=== PATIENT | female | born 1940 | race Caucasian/White ===

== ENCOUNTER 2018-01-02 01:20 | Inpatient (IN) | payer MEDICARE, BC ==
[2018-01-02] VITALS (33 sets, daily range): BP systolic 70–143; BP diastolic 46–101
[~2018-01-02] VITALS: Ht 154.9 cm; Wt 89.4 kg
[~2018-01-02 01:20] MED LIST: ALEN35TA30 PO; ASC500 PO; CALC-864 PO; CETI10CA8 PO; CHOL400T22 PO; CYC10 PO; DIA5 PO; FLUT16SP19 NS; HCTZ25 PO; HYDR2TAB42 PO; IPRA15SP7 NS; LOVA10TA63 PO; OMEG-59 PO; PER PO; PRE20 PO; RAN150 PO; VITA-200 PO; [UNRECOGNIZED DRUG - CODE] PO
[2018-01-02] MEDS ORDERED: NS(*) 0.9% 1000 ML BAG 1,000 ML IV ONE ×3 (01:21→06:50)
[2018-01-02] MEDS ORDERED: ALBUTEROL/IPRATROPIUM 3 ML NEB NEB ONE ×2 (01:25→04:55)
--- NOTE | 2018-01-02 01:27 | ER Report ---
History and Physical Time Seen By MD: 01:22 HPI/ROS CHIEF COMPLAINT: Altered mental status, found down, left facial droop, fever 105 axillary by EMS HISTORY OF PRESENT ILLNESS: 77-year-old female brought from [facility] after she was found down. Patient's son noted her walking 2 hours prior to calling EMS. He subsequently found her down with vomiting fluids coming from her nose and mouth. Patient's son notes. Patient's been sick with an ear infection. She was seen by Tara Haque 10 days ago and started on antibiotic. EMS in route administered Versed for agitation and shaking. Rectal temperature on arrival here is documented at 104.8. Patient's son also notes she's been having a cough. He denies dysuria. 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 Patient's son states that she is DO NOT RESUSCITATE, DO NOT INTUBATE. She watched her sister become intubated and then suffer on a ventilator for 2 weeks and then . He expresses that she does not want to go through that. REVIEW OF SYSTEMS: Unable to obtain due to altered mental status. Allergies: Coded Allergies: Penicillins (Verified Allergy, Unknown, 01/02/18) aspirin (Verified Allergy, Unknown, 01/02/18) Home Meds Reported Medications Cyclobenzaprine Hcl (CYCLOBENZAPRINE HCL) 10 Mg Tablet, 10 MG PO BID, #9 TAB 01/02/18 Meloxicam (MELOXICAM) 15 Mg Tablet, 15 MG PO QDAY 01/02/18 Mometasone Furoate (NASONEX) 17 Gm Grawn, 17 GM ROMERO DAILY, SPRAY 01/02/18 Mometasone Furoate (MOMETASONE FUROATE) 30 Ml Solution, 30 ML TP 01/02/18 Azelastine Hcl (AZELASTINE HCL) 137 Mcg/0.137 Ml Grawn.pump, 137 MCG NS DAILY, SPRAY 01/02/18 Fluticasone Prop 50 Mcg Ns (FLONASE 50 MCG NS) 16 Gm Grawn.susp, 1 SPRAY NS BID 10/31/14 Ipratropium Thaxton 0.06% Ns (IPRATROPIUM BROMIDE 0.06% NS) 15 Ml Grawn, 15 ML NS DAILY, SPRAY 10/31/14 Cetirizine Hcl (ZYRTEC) 10 Mg Capsule, 10 MG PO QDAY, CAPSULE TAKE 1 CAPSULE DAILY. 10/31/14 Ranitidine Hcl (Zantac) 150 Mg Tab, 150 MG PO QDAY 05/20/12 Lovastatin (Lovastatin) 10 Mg Tablet, 10 MG PO QHS 05/20/12 Hydrochlorothiazide (Hydrochlorothiazide) 25 Mg Tab, 25 MG PO QDAY 05/20/12 Discontinued Reported Medications Lovastatin (LOVASTATIN) 10 Mg Tablet, 10 MG PO QHS 01/02/18 Vitamin E Acetate (VITAMIN E) 400 Unit Capsule, 400 UNIT PO DAILY, CAPSULE 10/31/14 Cholecalciferol (Vitamin D3) (VITAMIN D) 400 Unit Tab.chew, 400 UNIT PO QDAY 05/20/12 Docosahexanoic Acid/Epa (Fish Oil 300 Mg Softgel) 1 Cap Capsule, 1 CAP PO BID 05/20/12 Calcium Carb & Cit/Vitamin D3 (CITRACAL + D ER TABLET) 1 Each Tablet.er, 1 EACH PO QDAY 05/20/12 Ascorbic Acid (Vitamin C) 500 Mg Tab, 1000 MG PO QDAY 05/20/12 Romanian Ginseng Root Extract (GINSENG EXTRACT) 50 Mg Capsule, 50 MG PO QDAY 05/20/12 Past Medical/Surgical History Degenerative disc disease, allergic rhinitis, GERD, hypertension, hyperlipidemia Reviewed Nurses Notes: Yes Old Medical Records Reviewed: Yes Hx Smoking: No Smoking Status: Never Smoker Exposure to Second Hand Smoke?: No Hx Substance Use Disorder: No Hx Alcohol Use: No Constitutional Vital Sign - Last 24 Hours 01/02/18 01/02/18 01/02/18 01/02/18 01:20 01:22 01:30 01:45 Temp 104.8 Pulse 150 130 130 Resp 51 49 49 B/P (MAP) 171/111 (131) 176/107 (130) Pulse Ox 63 97 96 O2 Delivery Room Air O2 Flow Rate 10.0 01/02/18 01/02/18 01/02/18 01/02/18 02:00 02:05 02:05 02:15 Temp 102.9 102.9 Pulse 127 Resp 48 B/P (MAP) 166/103 (124) 160/104 (122) Pulse Ox 96 01/02/18 01/02/18 01/02/18 01/02/18 02:30 02:30 02:30 02:35 Pulse 132 122 132 Resp 44 20 30 B/P (MAP) 163/102 (122) Pulse Ox 94 96 O2 Delivery Non-Rebreather O2 Flow Rate 12.0 18 18 2/18 01/02/18 02:45 03:03 03:06 03:15 Pulse 129 134 Resp 47 47 B/P (MAP) 146/97 (113) 146/97 (113) 150/99 (116) Pulse Ox 94 88 88 O2 Delivery Oxy Mask O2 Flow Rate 10 18 /18 /18 01/02/18 03:15 03:30 03:45 03:55 Pulse 132 130 Resp 49 44 B/P (MAP) 132/105 (114) 140/92 (108) Pulse Ox 85 81 O2 Flow Rate 15.0 6.0 01/02/1818 2/18 01/02/18 04:00 04:15 04:30 04:45 Temp 102.9 103.0 Pulse 140 129 132 Resp 27 39 41 B/P (MAP) 127/107 (114) 132/80 (97) 133/73 (93) 114/80 (91) Pulse Ox 78 80 83 01/02/18 01/02/18 2/18 01/02/18 05:00 05:00 05:05 05:10 Pulse 129 129 126 128 Resp 45 45 43 44 B/P (MAP) 101/71 (81) 101/71 (81) Pulse Ox 85 85 85 85 01/02/18 01/02/18 05:15 05:15 Pulse 127 127 Resp 46 46 B/P (MAP) 109/57 (74) 109/57 (74) Pulse Ox 86 86 Physical Exam Vital signs stable, blood pressure grossly elevated, tachycardic 130s, fever 104.8 rectally, pulse ox normal on simple mask General Appearance: The patient is alert, has no immediate need for airway protection and no signs of toxicity. Somnolent, increased respiratory rate Eyes: Pupils equal and round no pallor or injection. ENT, Mouth: Mucous membranes are moist. TMs are normal, without erythema or bulging to suggest otitis media Respiratory: There are no retractions, lungs are clear to auscultation. Cardiovascular: Regular rate and rhythm. Gastrointestinal: Abdomen is soft and non tender, no masses, bowel sounds normal. Neurological: Unresponsive, responds to painful stimuli, movement of extremities 4, patient's altered secondary to Versed administered by EMS in route. Difficult to assess accurately. Skin: Warm and dry, no rashes. Musculoskeletal: Neck is supple non tender. Extremities are nontender, nonswollen and have full range of motion. DIFFERENTIAL DIAGNOSIS: After history and physical exam differential diagnosis was considered for altered mental status including but not limited to hypoglycemia, infectious process, electrolyte abnormality, head injury and intoxicants. Additionally,adult fever including but not limited to viral syndromes including influenza, urinary tract infection, pneumonia and sepsis. Medical Decision Making Data Points Result Diagram: 01/02/18 0132 01/02/18 2103 Laboratory Hematology Test 01/02/18 00:00 01/02/18 01:28 01/02/18 01:32 01/02/18 02:05 CSF Appearance Cloudy (CLEAR) CSF Color Yellow (COLORLESS) CSF WBC 39981 /mm3 (0-5) CSF RBC 2277 /mm3 CSF Neutrophils 94 % CSF Lymphocytes 5 % CSF Monocytes 1 % CSF Eosinophils % 0 % CSF Basophils 0 % CSF Glucose < 20 mg/dl CSF Total Protein 2103 mg/dl (15-50) Haemophilus influenzae B Antigen Negative (NEGATIVE) Neisseria meningitidis A/Y Antigen Negative (NEGATIVE) Neisseria meningitidis C/W135 Ag Negative (NEGATIVE) N. meningitidis B/E.coli K1 Ag Negative (NEGATIVE) Group B Streptococcus Antigen Negative (NEGATIVE) Streptococcus pneumoniae Antigen Negative (NEGATIVE) Influenza Virus Type A (PCR) Negative (NEGATIVE) Influenza Virus Type B (PCR) Negative (NEGATIVE) Red Blood Count 4.99 M/uL (4.17-5.56) Mean Corpuscular Volume 79.8 fL (80.0-96.0) Mean Corpuscular Hemoglobin 26.4 pg (26.0-33.0) Mean Corpuscular Hemoglobin Concent 33.1 g/dL (32.0-36.0) Red Cell Distribution Width 16.2 % (11.5-14.5) Mean Platelet Volume 7.4 fL (7.2-11.1) Neutrophils (%) (Auto) 93.5 % (39.4-72.5) Lymphocytes (%) (Auto) 1.6 % (17.6-49.6) Monocytes (%) (Auto) 4.8 % (4.1-12.4) Eosinophils (%) (Auto) 0.0 % (0.4-6.7) Basophils (%) (Auto) 0.1 % (0.3-1.4) Nucleated RBC Relative Count (auto) 0.1 /100WBC Neutrophils # (Auto) 37.0 K/uL (2.0-7.4) Lymphocytes # (Auto) 0.6 K/uL (1.3-3.6) Monocytes # (Auto) 1.9 K/uL (0.3-1.0) Eosinophils # (Auto) 0.0 K/uL (0.0-0.5) Basophils # (Auto) 0.0 K/uL (0.0-0.1) Nucleated RBC Absolute Count (auto) 0.03 K/uL Peripheral Blood Smear Yes Y/N Ammonia < 9 UMOL/L (9-33) Thyroid Stimulating Hormone (TSH) 1.97 uIU/ml (0.46-4.68) Serum Alcohol < 10 mg/dl Blood Gas Puncture Site Left radial Blood Gas Patient Temperature 104.8 DEGREES Arterial Blood pH 7.40 (7.35-7.45) Arterial Blood Partial Pressure CO2 43 mmHg (32-37) Arterial Blood Partial Pressure O2 120 mmHg (60-80) Arterial Blood HCO3 26 mmol/L (20-26) Arterial Blood Oxygen Saturation 98 % (92-100) Arterial Blood Base Excess 2.0 mmol/L Vito Test Acceptable Carboxyhemoglobin 0.0 % (< 5.0) Oxygen Liters/Minute Unknown Test 01/02/18 02:09 Urine Color Yellow Urine Clarity Clear Urine pH 6.0 pH (4.8-9.5) Urine Specific [place] 1.014 Urine Protein 100 mg/dL (NEGATIVE) Urine Glucose (UA) 50 mg/dL (NEGATIVE) Urine Ketones 20 mg/dL (NEGATIVE) Urine Blood Negative (NEGATIVE) Urine Nitrite Negative (NEGATIVE) Urine Bilirubin Negative (NEGATIVE) Urine Urobilinogen Negative mg/dL (0.2-1.9) Urine Leukocyte Esterase Negative (NEGATIVE) Urine RBC 6 /HPF (0-2/HPF) Urine WBC 2 /HPF (0-5/HPF) Urine Squamous Epithelial Cells None /LPF (NONE-FEW) Urine Bacteria Negative /HPF (NONE-FEW) Urine Hyaline Casts Many /LPF (NONE-FEW) Urine Mucus None /HPF (NONE-FEW) Urine Opiates Screen Negative Urine Barbiturates Screen Negative Ur Tricyclic Antidepressants Screen Positive Urine Phencyclidine Screen Negative Urine Amphetamines Screen Negative Urine Benzodiazepines Screen Positive Urine Cocaine Screen Negative Urine Cannabinoids Screen Negative Chemistry Test 01/02/18 00:00 01/02/18 01:28 01/02/18 01:32 01/02/18 02:05 CSF Appearance Cloudy (CLEAR) CSF Color Yellow (COLORLESS) CSF WBC 59533 /mm3 (0-5) CSF RBC 2277 /mm3 CSF Neutrophils 94 % CSF Lymphocytes 5 % CSF Monocytes 1 % CSF Eosinophils % 0 % CSF Basophils 0 % CSF Glucose < 20 mg/dl CSF Total Protein 2103 mg/dl (15-50) Haemophilus influenzae B Antigen Negative (NEGATIVE) Neisseria meningitidis A/Y Antigen Negative (NEGATIVE) Neisseria meningitidis C/W135 Ag Negative (NEGATIVE) N. meningitidis B/E.coli K1 Ag Negative (NEGATIVE) Group B Streptococcus Antigen Negative (NEGATIVE) Streptococcus pneumoniae Antigen Negative (NEGATIVE) Influenza Virus Type A (PCR) Negative (NEGATIVE) Influenza Virus Type B (PCR) Negative (NEGATIVE) White Blood Count 39.6 k/uL (4.5-11.0) Red Blood Count 4.99 M/uL (4.17-5.56) Hemoglobin 13.2 g/dL (12.0-16.0) Hematocrit 39.8 % (34.0-47.0) Mean Corpuscular Volume 79.8 fL (80.0-96.0) Mean Corpuscular Hemoglobin 26.4 pg (26.0-33.0) Mean Corpuscular Hemoglobin Concent 33.1 g/dL (32.0-36.0) Red Cell Distribution Width 16.2 % (11.5-14.5) Platelet Count 183 K/uL (150-450) Mean Platelet Volume 7.4 fL (7.2-11.1) Neutrophils (%) (Auto) 93.5 % (39.4-72.5) Lymphocytes (%) (Auto) 1.6 % (17.6-49.6) Monocytes (%) (Auto) 4.8 % (4.1-12.4) Eosinophils (%) (Auto) 0.0 % (0.4-6.7) Basophils (%) (Auto) 0.1 % (0.3-1.4) Nucleated RBC Relative Count (auto) 0.1 /100WBC Neutrophils # (Auto) 37.0 K/uL (2.0-7.4) Lymphocytes # (Auto) 0.6 K/uL (1.3-3.6) Monocytes # (Auto) 1.9 K/uL (0.3-1.0) Eosinophils # (Auto) 0.0 K/uL (0.0-0.5) Basophils # (Auto) 0.0 K/uL (0.0-0.1) Nucleated RBC Absolute Count (auto) 0.03 K/uL Peripheral Blood Smear Yes Y/N Ammonia < 9 UMOL/L (9-33) Thyroid Stimulating Hormone (TSH) 1.97 uIU/ml (0.46-4.68) Serum Alcohol < 10 mg/dl Blood Gas Puncture Site Left radial Blood Gas Patient Temperature 104.8 DEGREES Arterial Blood pH 7.40 (7.35-7.45) Arterial Blood Partial Pressure CO2 43 mmHg (32-37) Arterial Blood Partial Pressure O2 120 mmHg (60-80) Arterial Blood HCO3 26 mmol/L (20-26) Arterial Blood Oxygen Saturation 98 % (92-100) Arterial Blood Base Excess 2.0 mmol/L Vito Test Acceptable Carboxyhemoglobin 0.0 % (< 5.0) Oxygen Liters/Minute Unknown Test 01/02/18 02:09 Urine Color Yellow Urine Clarity Clear Urine pH 6.0 pH (4.8-9.5) Urine Specific [place] 1.014 Urine Protein 100 mg/dL (NEGATIVE) Urine Glucose (UA) 50 mg/dL (NEGATIVE) Urine Ketones 20 mg/dL (NEGATIVE) Urine Blood Negative (NEGATIVE) Urine Nitrite Negative (NEGATIVE) Urine Bilirubin Negative (NEGATIVE) Urine Urobilinogen Negative mg/dL (0.2-1.9) Urine Leukocyte Esterase Negative (NEGATIVE) Urine RBC 6 /HPF (0-2/HPF) Urine WBC 2 /HPF (0-5/HPF) Urine Squamous Epithelial Cells None /LPF (NONE-FEW) Urine Bacteria Negative /HPF (NONE-FEW) Urine Hyaline Casts Many /LPF (NONE-FEW) Urine Mucus None /HPF (NONE-FEW) Urine Opiates Screen Negative Urine Barbiturates Screen Negative Ur Tricyclic Antidepressants Screen Positive Urine Phencyclidine Screen Negative Urine Amphetamines Screen Negative Urine Benzodiazepines Screen Positive Urine Cocaine Screen Negative Urine Cannabinoids Screen Negative Toxicology Test 01/02/18 01:32 01/02/18 02:09 Serum Alcohol < 10 mg/dl Urine Opiates Screen Negative Urine Barbiturates Screen Negative Ur Tricyclic Antidepressants Screen Positive Urine Phencyclidine Screen Negative Urine Amphetamines Screen Negative Urine Benzodiazepines Screen Positive Urine Cocaine Screen Negative Urine Cannabinoids Screen Negative Urinalysis Test 01/02/18 02:09 Urine Color Yellow Urine Clarity Clear Urine pH 6.0 pH (4.8-9.5) Urine Specific [place] 1.014 Urine Protein 100 mg/dL (NEGATIVE) Urine Glucose (UA) 50 mg/dL (NEGATIVE) Urine Ketones 20 mg/dL (NEGATIVE) Urine Blood Negative (NEGATIVE) Urine Nitrite Negative (NEGATIVE) Urine Bilirubin Negative (NEGATIVE) Urine Urobilinogen Negative mg/dL (0.2-1.9) Urine Leukocyte Esterase Negative (NEGATIVE) Urine RBC 6 /HPF (0-2/HPF) Urine WBC 2 /HPF (0-5/HPF) Urine Squamous Epithelial Cells None /LPF (NONE-FEW) Urine Bacteria Negative /HPF (NONE-FEW) Urine Hyaline Casts Many /LPF (NONE-FEW) Urine Mucus None /HPF (NONE-FEW) Microbiology Microbiology Date/Time Source Procedure Growth Status 01/02/18 02:05 Blood Peripheral Draw Blood Culture - Final Resulted 01/02/18 02:05 Blood Peripheral Draw Blood Culture - Preliminary Resulted 01/02/18 01:32 Blood Peripheral Draw Blood Culture - Final Resulted 01/02/18 01:32 Blood Peripheral Draw Blood Culture - Preliminary NO GROWTH SO FAR, SET LATE. REINCUBATED Resulted EKG/Imaging EKG Interpretation 12 lead EK Rhythm: Sinus tachycardia, rate 130 bpm [place]: normal QRS:, Old anterior Q waves ST segments: normal, no evidence of acute ischemia or dysrhythmia 12 lead EK Rhythm: Sinus tachycardia, rate 117 [place]: normal QRS: normal ST segments: Nonspecific diffuse ST and T-wave changes Imaging X-ray: Single view portable chest x-ray was obtained. I viewed the images myself on the PACS system. My interpretation of the images is: Cardiomegaly, question left lower lobe infiltrate, normal mediastinum, no old x-rays for comparison. The radiologist interpretation had no clinically significant variation from this interpretation. Results: CT scan of the head was obtained. The results of the study are HEAD CT: Indication: Altered mental status. Technique: Contiguous axial sections were obtained from the base to the vertex without contrast enhancement. One of the following dose optimization techniques was utilized in the performance of this exam: Automated exposure control; adjustment of the mA and/ or kV according to the patient's size; or use of an iterative reconstruction technique. Specific details can be referenced in the facility's radiology CT exam operational policy. Comparison: None. Findings: There is no evidence of intra-axial or extra-axial hemorrhage. No focal areas of decreased or increased attenuation are identified. There is no evidence of mass, edema, or shift of the midline structures. The size, shape, and configuration of the ventricular system are normal. The skeletal structures are intact and unremarkable. There is mucosal thickening in the sinuses, compatible with acute sinusitis. Impression: No evidence of hemorrhage, mass, or edema. Sinusitis. The study was read by the radiologist. I viewed the images myself on the PACS system. ED Course/Re-evaluation Clinical Indication for ER IV: Hydration, IV Access ED Course Patient was admitted to an examination room. H&P was done. The differential diagnoses was considered. Patient on arrival has a rectal temperature of 104.8. She is likely septic from unknown sources. She has report of an ear infection that was treated 10 days ago with antibiotic. Patient's son states she's been sick with a cough for the last week. Tonight she collapsed and was found down and vomited. She likely aspirated copious fluid was noted coming out of her nose and mouth. EMS documented an axillary temperature of 105. She was found down after being missing for 2 hours. Transfer time was approximately 3 hours. On arrival here. Patient has grossly elevated blood pressure and is tachycardic near 150. She is aggressively fluid resuscitated. Tylenol is administered per rectum. Curry catheter is inserted. Her temperature remains 39.4. Despite aggressive fluid resuscitation cooling measures. A portable chest x-ray shows no obvious infiltrate, although as a hazy left cardiac border suggesting possible infiltrate. CT scan of the head is performed which is unremarkable except for sinusitis. Patient's white blood cell count returned at 39,000 with a left shift. Her lactate was 5. Her troponin is 0.89, suggesting a significant cardiac event She was treated with cefepime 2 g IV. I spoke with the patient's son at length explaining that she is very ill and likely to from the infection alone, not to mention that she is suffering an acute cardiac event. Patient's saturations on arrival were in the low 90s on high percent nonrebreather. She rapidly deteriorated with saturations dropping into the low 80s and copious secretions from her lungs. She is likely developing ARDS. I explained to her son that her survival is unlikely. But that we would admit her and aggressively support her with IV antibiotics and fluid resuscitation. 01/02/2018 2:09:02 am ABG noted 7.45, CO2 36, saturation adequate 01/02/2018 4:15:42 am Procedure: Lumbar puncture. Indication: Unresponsive, fever, sepsis After verbal informed consent from patient's son explaining the risks including infection, bleeding, and neurologic damage, a lumbar puncture was performed after the patient was prepped and draped in the usual fashion. The back was anesthetized with 1% lidocaine. Approximately, no fluid was obtained. Multiple passes were made at 2 different levels with 3 different spinal needle without success. Patient has significant adipose tissue making landmarks difficult to distinguish The procedure was performed by myself. Decision to Disposition Date: Jan 02, 2018 Decision to Disposition Time: 01:57 Critical Care Time I spent a total of 90 minutes of critical care time in obtaining history, performing a physical exam, bedside monitoring of interventions, collecting and interpreting tests and discussion with consultants but not including time spent performing procedures. Depart Departure Latest Vital Signs Vital Signs Date Time Temp Pulse Resp B/P (MAP) Pulse Ox O2 Delivery O2 Flow Rate FiO2 01/02/18 05:15 127 46 109/57 (74) 86 01/02/18 04:45 103.0 01/02/18 03:55 6.0 01/02/18 03:06 Oxy Mask Impression: Primary Impression: Fever Additional Impressions: Sepsis Altered mental status Do not resuscitate status Hypokalemia Sinusitis Elevated troponin Condition: Improved Disposition: Admitted from ER Problem Qualifiers Primary Impression: Fever Fever type: unspecified Qualified Codes: R50.9 - Fever, unspecified Additional Impressions: Sepsis Sepsis type: sepsis due to unspecified organism Qualified Codes: A41.9 - Sepsis, unspecified organism Altered mental status Altered mental status type: delirium Qualified Codes: R41.0 - Disorientation , unspecified Sinusitis Sinusitis location: unspecified location Chronicity: acute Recurrence: not specified as recurrent Qualified Codes: J01.90 - Acute sinusitis, unspecified WILBUR JOHN DO Jan 02, 2018 01:27
[2018-01-02] MEDS ORDERED: ACETAMINOPHEN 325 MG SUPP PR ONE ×2 (01:35→05:50)
[2018-01-02] MEDS ORDERED: ACETAMINOPHEN 650 MG SUPP PR ONE ×2 (01:35→05:50)
[2018-01-02 01:46] LABS: PLATELET COUNT, AUTOMATED 183 K/uL (150-450)
--- NOTE | 2018-01-02 01:52 | EKG ---
FACILITY: [facility] - [place] PATIENT NAME: THERESA REDMAN : [id number] MR: [id number] V: [id number] EXAM DATE: ORDERING PHYSICIAN: WILBUR NGUYEN TECHNOLOGIST: ADA Fajardo Reason : CARDIAC Blood Pressure : / mmHG Vent. Rate : 130 BPM Atrial Rate : 130 BPM P-R Int : 138 ms QRS Dur : 080 ms QT Int : 296 ms P-R-T Axes : 051 065 063 degrees QTc Int : 435 ms Sinus tachycardia Possible left atrial enlargement Poor R wave progression anteriorly Abnormal ECG No previous ECGs available Confirmed by PEDRO ALFONSO ([id number] on 01/02/2018 2:02:38 AM Referred By: Confirmed By:PEDRO ALFONSO
--- NOTE | 2018-01-02 02:14 | RADIOLOGY IMAGING REPORT ---
[facility] PATIENT NAME: Merlyn Israel : 1940 MR: [id number] V: [id number] EXAM DATE: ORDERING PHYSICIAN: WILBUR JOHN TECHNOLOGIST: Location: [facility] Patient: Merlyn Israel : 1940 Visit/Account:[id number] Date of Sevice: 01/02/2018 PORTABLE CHEST: Indication: Altered mental status. Technique: A single frontal film was obtained. Comparison: None. Skeletal and soft tissue structures: No acute skeletal deformity is identified. Heart and mediastinum: The heart appears mildly enlarged. Lung ibarra: Well-expanded. There are prominent interstitial markings in both lungs. No focal parench ymal consolidation or volume loss is identified. Pleural spaces: No evidence of pneumothorax or effusion. Impression: No acute process is identified. Report Dictated By: Claudio Lainez MD at 01/02/2018 2:07 AM Report E-Signed By: Claudio Lainez MD at 01/02/2018 2:10 AM WSN:[id number]
[2018-01-02] MEDS ORDERED: CEFEPIME HCL 2 GM VIAL IVP ONE (02:25)
--- NOTE | 2018-01-02 03:20 | RADIOLOGY IMAGING REPORT ---
FACILITY: [facility] [place] PATIENT NAME: Merlyn Israel : 1940 MR: [id number] V: [id number] EXAM DATE: ORDERING PHYSICIAN: WILBUR JOHN TECHNOLOGIST: Location: [facility] Patient: Merlyn Israel : 1940 Visit/Account:[id number] Date of Sevice: 01/02/[address]: Indication: Altered mental status. Technique: Contiguous axial sections were obtained from the base to the vertex without contrast enhan cement. One of the following dose optimization techniques was utilized in the performance of this exam: Autom ated exposure control; adjustment of the mA and/or kV according to the patient's size; or use of an i terative reconstruction technique. Specific details can be referenced in the facility's radiology CT exam operational policy. Comparison: None. Findings: There is no evidence of intra-axial or extra-axial hemorrhage. No focal areas of decreased or increased attenuation are identified. There is no evidence of mass, edema, or shift of the midline structures. The size, shape, and configuration of the ventricular system are normal. The skeletal st ructures are intact and unremarkable. There is mucosal thickening in the sinuses, compatible with acu te sinusitis. Impression: No evidence of hemorrhage, mass, or edema. Sinusitis. Report Dictated By: Claudio Lainez MD at 01/02/2018 3:08 AM Report E-Signed By: Claudio Lainez MD at 01/02/2018 3:16 AM [id number]
[2018-01-02] MEDS ORDERED: AZEL137S NS (03:22)
[2018-01-02] MEDS ORDERED: CYCL10TA29 PO (03:22)
[2018-01-02] MEDS ORDERED: MOME30SO TP (03:22)
[2018-01-02] MEDS ORDERED: MOMR ENA (03:22)
[2018-01-02] MEDS ORDERED: MELO-207 PO (03:22)
[2018-01-02] MEDS ORDERED: NS(*) 0.9% 100 ML BAG 100 ML ONE (04:11)
[2018-01-02] MEDS ORDERED: NS(*) 0.9% 1000 ML BAG 1,000 ML IV PRN ×3 (05:45→11:09)
[2018-01-02] MEDS ORDERED: KCL (*) 20 MEQ/100 ML PREMIX 100 ML IV ONE (06:35)
--- NOTE | 2018-01-02 06:59 | EKG ---
FACILITY: [facility] PATIENT NAME: THERESA REDMAN : [id number] MR: [id number] V: [id number] EXAM DATE: ORDERING PHYSICIAN: WILBUR JOHN TECHNOLOGIST: JUAN MANUEL Fajardo Reason : REPEAT Blood Pressure : / mmHG Vent. Rate : 117 BPM Atrial Rate : 117 BPM P-R Int : 142 ms QRS Dur : 074 ms QT Int : 352 ms P-R-T Axes : 063 028 075 degrees QTc Int : 491 ms Sinus tachycardia Nonspecific ST abnormality Abnormal ECG Relatively unchanged from previous Confirmed by MICHAEL HENRIQUEZ ([id number]) on 01/02/2018 11:14:24 AM Referred By: Confirmed By:MICHAEL HENRIQUEZ
[2018-01-02] MEDS ORDERED: LOVA10TA63 PO (08:10)
[2018-01-02] MEDS ORDERED: INFLUENZA VIRUS VAC 0.5 ML SYR IM ONLY ONE (09:15)
[2018-01-02] MEDS ORDERED: NS 0.9% 20 ML SDV 60 ML ONE (09:21)
[2018-01-02] MEDS ORDERED: IOPAMIDOL 76% 75 ML INFUS BTL 75 ML ONE (09:21)
[2018-01-02] MEDS ORDERED: cefTRIAXone 2 GM VIAL IVP SCH (09:30)
[2018-01-02] MEDS ORDERED: VANCOMYCIN IVPB ONE (10:00)
[2018-01-02] MEDS ORDERED: [UNRECOGNIZED DRUG - OTHER] IVPB ONE (10:00)
--- NOTE | 2018-01-02 10:46 | EKG ---
FACILITY: [facility] - [place] [place] PATIENT NAME: THERESA REDMAN : [id number] MR: [id number] V: [id number] EXAM DATE: ORDERING PHYSICIAN: MICHAEL HENRIQUEZ TECHNOLOGIST: JUAN MANUEL Fajardo Reason : repeat Blood Pressure : / mmHG Vent. Rate : 114 BPM Atrial Rate : 114 BPM P-R Int : 140 ms QRS Dur : 070 ms QT Int : 362 ms P-R-T Axes : 063 064 064 degrees QTc Int : 498 ms Sinus tachycardia Low voltage QRS Nonspecific ST abnormality Abnormal ECG When compared with ECG of 02-JAN-2018 06:34, No significant change was found Confirmed by MICHAEL HENRIQUEZ ([id number]) on 01/02/2018 11:14:41 AM Referred By: FLORENCE Confirmed By:MICHAEL HENRIQUEZ
--- NOTE | 2018-01-02 11:30 | History & Physical ---
History of Present Illness History of Present Illness 77yo female with hypogammaglobulinemia who was brought to the ER for AMS. The history is from her son. She had an ear infection and was placed on a 10 day course of Doxycycline that would have ended about 4 days ago. She has also had a cough for a couple of weeks. She has been doing relatively well until about 10 pm last night. Her son was unable to wake her up. She had evidence that she was vomiting. She got Versed en route from [place] because of agitaiton and shaking. She had a fever of 104.8 in the ER. She had been on IVIG infusions up for hypogammaglobulinemia up until a couple of years ago. She couldn't afford the infusions, so stopped getting them. In the ER, she had a fever to 104.8, HR 130 and BP of 176/107. She received about 4-6 liters of fluid. She was given a dose of Cefepime. History Problems: (1) Hypogammaglobulinemia Status: Chronic (2) HTN (hypertension) Status: Chronic (3) Multiple allergies Home Meds Reported Medications Cyclobenzaprine Hcl (CYCLOBENZAPRINE HCL) 10 Mg Tablet, 10 MG PO BID, #9 TAB 01/02/18 Meloxicam (MELOXICAM) 15 Mg Tablet, 15 MG PO QDAY 01/02/18 Mometasone Furoate (NASONEX) 17 Gm Mayflower, 17 GM ROMERO DAILY, SPRAY 01/02/18 Mometasone Furoate (MOMETASONE FUROATE) 30 Ml Solution, 30 ML TP 01/02/18 Azelastine Hcl (AZELASTINE HCL) 137 Mcg/0.137 Ml Mayflower.pump, 137 MCG NS DAILY, SPRAY 01/02/18 Fluticasone Prop 50 Mcg Ns (FLONASE 50 MCG NS) 16 Gm Mayflower.susp, 1 SPRAY NS BID 10/31/14 Ipratropium [place] 0.06% Ns (IPRATROPIUM BROMIDE 0.06% NS) 15 Ml Mayflower, 15 ML NS DAILY, SPRAY 10/31/14 Cetirizine Hcl (ZYRTEC) 10 Mg Capsule, 10 MG PO QDAY, CAPSULE TAKE 1 CAPSULE DAILY. 10/31/14 Ranitidine Hcl (Zantac) 150 Mg Tab, 150 MG PO QDAY 7/8/12 Lovastatin (Lovastatin) 10 Mg Tablet, 10 MG PO QHS 05/20/12 Hydrochlorothiazide (Hydrochlorothiazide) 25 Mg Tab, 25 MG PO QDAY 05/20/12 Discontinued Reported Medications Lovastatin (LOVASTATIN) 10 Mg Tablet, 10 MG PO QHS 01/02/18 Vitamin E Acetate (VITAMIN E) 400 Unit Capsule, 400 UNIT PO DAILY, CAPSULE 10/31/14 Cholecalciferol (Vitamin D3) (VITAMIN D) 400 Unit Tab.chew, 400 UNIT PO QDAY 05/20/12 Docosahexanoic Acid/Epa (Fish Oil 300 Mg Softgel) 1 Cap Capsule, 1 CAP PO BID 05/20/12 Calcium Carb & Cit/Vitamin D3 (CITRACAL + D ER TABLET) 1 Each Tablet.er, 1 EACH PO QDAY 05/20/12 Ascorbic Acid (Vitamin C) 500 Mg Tab, 1000 MG PO QDAY 05/20/12 Indonesian Ginseng Root Extract (GINSENG EXTRACT) 50 Mg Capsule, 50 MG PO QDAY 05/20/12 Allergies: Coded Allergies: Penicillins (Verified Allergy, Unknown, 01/02/18) aspirin (Verified Allergy, Unknown, 01/02/18) Other Social/Family Hx Lives in [place]. Retired. Hx Smoking: No Smoking Status: Never Smoker Exposure to Second Hand Smoke?: No Hx Alcohol Use: No Hx Substance Use Disorder: No Review of Systems Other Unable to obtain. Exam Vital Signs Vital Signs Date Time Temp Pulse Resp B/P (MAP) Pulse Ox O2 Delivery O2 Flow Rate FiO2 01/02/18 08:50 90.0 01/02/18 08:00 100.3 116 116/101 (106) 89 Non-Rebreather 21.0 01/02/18 07:30 56 General Appearance: Other (Labored breathing.) Neuro: Other (Eyes open, but doesn't follow commands or answer questions. Moving all extremities.) Cardiovascular: Other (Tachy, regular) Respiratory: Other (Coarse BS througout) GI: Other (Mildly distended. Soft. Difficult to discern if there is tenderness) Extremities: No Edema Integumentary: No Jaundice, No Cyanosis Medical Decision Making Data Points Result Diagram: 01/02/18 0132 01/02/18 0132 Item Value Date Time Potassium Level 3.4 mmol/L L 01/02/18 0000 Potassium Level 2.8 mmol/L *L 01/02/18 0132 Blood Urea Nitrogen 15 mg/dl 01/02/18 0000 Blood Urea Nitrogen 11 mg/dl 01/02/18 0132 Creatinine 0.90 mg/dl 01/02/18 013 Creatinine 1.10 mg/dl H 01/02/18 0000 Lactate 5.6 mmol/L *H 01/02/18 0000 Lactate 5.3 mmol/L *H 01/02/18 0132 Total Bilirubin 0.8 mg/dl 01/02/18 0132 Aspartate Amino Transf (AST/SGOT) 39 U/L H 01/02/18 0132 Alanine Aminotransferase (ALT/SGPT) 37 U/L 01/02/18 0132 Alkaline Phosphatase 103 U/L 01/02/18 0132 Ammonia < 9 UMOL/L L 01/02/18 013 Troponin I 0.918 ng/ml *H 01/02/18 0132 Troponin I 5.820 ng/ml *H 01/02/18 0902 White Blood Count 39.6 k/uL *H 01/02/18 0132 Hemoglobin 13.2 g/dL 01/02/18 013 Platelet Count 183 K/uL 01/02/18 0132 Neutrophils (%) (Auto) 93.5 % H 01/02/18 013 Arterial Blood pH 7.40 01/02/18 0205 Arterial Blood Partial Pressure CO2 43 mmHg H 01/02/18 0205 Arterial Blood Partial Pressure O2 120 mmHg *H 01/02/18 0205 Arterial Blood HCO3 26 mmol/L 01/02/18 020 Arterial Blood Oxygen Saturation 98 % 01/02/18 020 Arterial Blood Base Excess 2.0 mmol/L 01/02/18 020 Urine Specific Purlear 1.014 01/02/18 0209 Urine Protein 100 mg/dL 01/02/18 0209 Urine Glucose (UA) 50 mg/dL H 01/02/18 0209 Urine RBC 6 /HPF 01/02/18 0209 Urine WBC 2 /HPF 01/02/18 0209 Urine Squamous Epithelial Cells None /LPF 01/02/18 0209 Urine Bacteria Negative /HPF 01/02/18 0209 Urine Hyaline Casts Many /LPF H 01/02/18 0209 Influenza Virus Type A (PCR) Negative 01/02/188 Influenza Virus Type B (PCR) Negative 01/02/18 0128 Ur Tricyclic Antidepressants Screen Positive 01/02/18 0209 Urine Benzodiazepines Screen Positive 01/02/18 0209 Serum Alcohol < 10 mg/dl 01/02/18 0132 EKG / Imaging EKG Interpretation Vent. Rate : 130 BPM Atrial Rate : 130 BPM P-R Int : 138 ms QRS Dur : 080 ms QT Int : 296 ms P-R-T Axes : 051 065 063 degrees QTc Int : 435 ms Sinus tachycardia Possible left atrial enlargement Poor R wave progression anteriorly Abnormal ECG No previous ECGs available Confirmed by PEDRO ALFONSO ([id number]) on 01/02/2018 2:02:38 AM Imaging CXR - Vent. Rate : 130 BPM Atrial Rate : 130 BPM P-R Int : 138 ms QRS Dur : 080 ms QT Int : 296 ms P-R-T Axes : 051 065 063 degrees QTc Int : 435 ms Sinus tachycardia Possible left atrial enlargement Poor R wave progression anteriorly Abnormal ECG No previous ECGs available Confirmed by PEDRO ALFONSO ([id number]) on 01/02/2018 2:02:[address] - No evidence of hemorrhage, mass, or edema. Sinusitis. Assessment and Plan Problems: (1) Sepsis Status: Acute Assessment & Plan: She presented with acute onset of AMS and fever to 104.8. She has an elevated WBC/troponin/lactate. CXR and UA are wnl. They were unable to get an LP done in the ER. ER physician was under the impression that the patient's and son's wishes were that only antibiotics and fluids be tried and no other aggressive interactions. However, the son would like everything done except to have her intubated. She will be transferred to the ICU. Will get a CT chest/abd/pelvis. Follow lactate. Her BP is stable but still tachycardic. Will contact anesthesia about getting an LP done. Will change abx to ceftriaxone/vancomycin. She will be placed in contact isolation. (2) Elevated troponin Status: Acute Assessment & Plan: Likely related to sepsis. Her ECG is relatively normal. I will discuss with Cardiology about any changes in management. Echo to be done. (3) Altered mental status Status: Acute Assessment & Plan: Etiology unclear. See above. Head CT without any obvious cause. (4) Hypogammaglobulinemia Status: Chronic Assessment & Plan: Untreated for the last couple of years secondary to lack of insurance. We are trying to get records. Will likely infuse IVIG. (5) HTN (hypertension) Status: Chronic Assessment & Plan: Hold chronic medications. Venous Thromboembolism Antithrombotics Is Pt On Any Antithrombotics?: No Exam Sepsis Risk: Severe Sepsis Risk Problem Qualifiers (1) Sepsis: Sepsis type: sepsis due to unspecified organism Qualified Codes: A41.9 - Sepsis, unspecified organism (2) Altered mental status: Altered mental status type: delirium Qualified Codes: R41.0 - Disorientation , unspecified MICHAEL HENRIQUEZ MD Jan 02, 2018 11:30
[2018-01-02] MEDS: NS 0.9% IVPB SCH ×2 (12:30→20:58)
[2018-01-02] MEDS: ACYCLOVIR IVPB SCH ×2 (12:30→20:58)
[2018-01-02] MEDS ORDERED: LORazepam 2 MG/ML VIAL IVP ONE ×2 (13:30→19:20)
[2018-01-02] MEDS ORDERED: NS(*) 0.9% 10 ML VIAL 0 ML ONE (13:52)
[2018-01-02] MEDS ORDERED: LIDOCAINE MPF 1% 5 ML VIAL ONE (13:52)
[2018-01-02] MEDS ORDERED: ACETAMINOPHEN(*)1000 MG/100 ML 100 ML IVPB ONE (14:15)
[2018-01-02] MEDS ORDERED: diphenhydrAMINE 50 MG/ML VIAL IVP ONE (14:30)
[2018-01-02] MEDS ORDERED: methylPREDNIS SUCC 125 MG/2ML IVP ONE (14:35)
--- NOTE | 2018-01-02 14:36 | RADIOLOGY IMAGING REPORT ---
[place] [facility] [place] Merlyn Israel : 1940 MR: [id number] V: [id number] EXAM DATE: ORDERING PHYSICIAN: MICHAEL HENRIQUEZ TECHNOLOGIST: Location: [facility] Patient: Merlyn Israel : 1940 Visit/Account:[id number] Date of Sevice: 01/02/2018 ADDENDUM #1 Also in the impression of the CT the chest: Incidental note of a retroesophageal right subclavian art pat. Report Dictated By: Paulino Phipps at 01/02/2018 5:18 PM Report E-Signed By: Paulino Phipps at 01/02/2018 5:[address] angiogram chest with contrast Indication: Respiratory distress. Distended abdomen. Elevated lactate. Comparison: None available. Technique: Axial CT images are obtained through the chest after administration of 75 mL Isovue 370 IV contrast. Reformatted coronal and sagittal images were reviewed as well as coronal MIP images. One of the following dose optimization techniques was utilized in the performance of this exam: auto mated exposure control; adjustment of the mA and/or kV according to the patient's size; or use of an iterative reconstruction technique. Specific details can be referenced in the facility's radiology C T exam operational policy. FINDINGS: No evidence of filling defect within the pulmonary vasculature to suggest pulmonary embolus. The heart is upper limits normal for size. The aorta shows no aneurysm or dissection. Incidental note of a retroesophageal right subclavian artery. Mediastinum and hilar regions show no enlarged lymph n odes or abnormal density. Small bilateral pleural effusions with bilateral upper lobe consolidation with some mild extension to the inferior basilar, dependent regions.. No other areas of consolidation. No pneumothorax. No discr ete nodules. The airways are clear. Bony structures show no acute fracture or discrete lesions. The chest wall shows no enlarged axillary lymph nodes or masses. Limited views of the upper abdomen are unremarkable. IMPRESSION: 1. No evidence of pulmonary embolus. 2. Bilateral pneumonia with small pleural effusions. CT abdomen and pelvis without and with IV contrast Indication: Distended abdomen, elevated lactate. Respiratory distress. Comparison: None available. . Technique: Axial CT images were obtained through the abdomen and pelvis prior to and during injecti on of nonionic iodinated intravenous contrast. Reformatted coronal and sagittal images were also obta ined. One of the following dose optimization techniques was utilized in the performance of this exam: Autom ated exposure control; adjustment of the mA and/or kV according to the patient's size; or use of an i terative reconstruction technique. Specific details can be referenced in the facility's radiology C T exam operational policy. Contrast: 75 ml of Isovue-370 IV contrast. Findings: Lower lung ibarra: Small bowel bilateral pleural effusions with early bibasilar consolidation. Liver: No focal parenchymal abnormality of the liver. Biliary: Gallbladder appears unremarkable as well as the intra and extra hepatic biliary system. Pancreas: No focal abnormality or ductal dilatation. Around the tail of pancreas there is mild inflam matory stranding and fluid extending to the left paracolic gutter region. No fluid collections around the pancreas. Spleen: Normal appearance. Adrenal glands: Unremarkable. Kidneys / retroperitoneum: No evidence of nephrolithiasis or hydronephrosis. Bilateral renal cysts, 1 .2 centers on the right and 3.9 cm on the left. No other discrete renal lesions. Bowel / peritoneum / mesenteries: Multiple diverticula seen along the descending and sigmoid colon wi thout pericolonic inflammation. The colon shows no focal normality. The appendix is not visualized. S mall bowel shows no focal abnormality or obstruction. The stomach is unremarkable. The duodenum shows no focal abnormality. No free air, free fluid, fluid collections or areas of inflammation. Small u bilical hernia containin g fat. Lymph node assessment: No pathologic adenopathy identified.Pelvic structures: The urinary bladder is decompressed with Curry catheter in place. The remaining pelvic structures visualized within selena l limits. Vessels: Mild atherosclerotic calcifications seen throughout a nonaneurysmal abdominal aorta and bran ches. Musculoskeletal / Body wall: No acute or aggressive osseous abnormality. Mild degenerative changes sp ine. IMPRESSION: 1. There is mild distal peripancreatic inflammation and fluid extending into the paracolic gutter reg ion on the left side. No fluid collections. No focal pancreatic abnormality. This could be due to ear ly pancreatitis. 2. Diverticulosis without radiographic indication diverticulitis. 3. Small bilateral small pleural effusion with bibasilar consolidation. 4. Bilateral renal cyst. Report Dictated By: Paulino Phipps at 01/02/2018 2:10 PM Report E-Signed By: Paulino Phipps at 01/02/2018 2:31 PM WSN:[id number]
--- NOTE | 2018-01-02 14:37 | RADIOLOGY IMAGING REPORT ---
[place] [facility] [place] NAME: Merlyn Israel : 1940 MR: [id number] V: [id number] EXAM DATE: ORDERING PHYSICIAN: MICHAEL HENRIQUEZ TECHNOLOGIST: Location: [facility] - [place] Patient: Merlyn Israel : 1940 Visit/Account:[id number] Date of Sevice: 01/02/2018 ADDENDUM #1 Also in the impression of the CT the chest: Incidental note of a retroesophageal right subclavian art pat. Report Dictated By: Paulino Phipps at 01/02/2018 5:18 PM Report E-Signed By: Paulino Phipps at 01/02/2018 5:[address] angiogram chest with contrast Indication: Respiratory distress. Distended abdomen. Elevated lactate. Comparison: None available. Technique: Axial CT images are obtained through the chest after administration of 75 mL Isovue 370 IV contrast. Reformatted coronal and sagittal images were reviewed as well as coronal MIP images. One of the following dose optimization techniques was utilized in the performance of this exam: auto mated exposure control; adjustment of the mA and/or kV according to the patient's size; or use of an iterative reconstruction technique. Specific details can be referenced in the facility's radiology C T exam operational policy. FINDINGS: No evidence of filling defect within the pulmonary vasculature to suggest pulmonary embolus. The heart is upper limits normal for size. The aorta shows no aneurysm or dissection. Incidental note of a retroesophageal right subclavian artery. Mediastinum and hilar regions show no enlarged lymph n odes or abnormal density. Small bilateral pleural effusions with bilateral upper lobe consolidation with some mild extension to the inferior basilar, dependent regions.. No other areas of consolidation. No pneumothorax. No discr ete nodules. The airways are clear. Bony structures show no acute fracture or discrete lesions. The chest wall shows no enlarged axillary lymph nodes or masses. Limited views of the upper abdomen are unremarkable. IMPRESSION: 1. No evidence of pulmonary embolus. 2. Bilateral pneumonia with small pleural effusions. CT abdomen and pelvis without and with IV contrast Indication: Distended abdomen, elevated lactate. Respiratory distress. Comparison: None available. . Technique: Axial CT images were obtained through the abdomen and pelvis prior to and during injecti on of nonionic iodinated intravenous contrast. Reformatted coronal and sagittal images were also obta ined. One of the following dose optimization techniques was utilized in the performance of this exam: Autom ated exposure control; adjustment of the mA and/or kV according to the patient's size; or use of an i terative reconstruction technique. Specific details can be referenced in the facility's radiology C T exam operational policy. Contrast: 75 ml of Isovue-370 IV contrast. Findings: Lower lung ibarra: Small bowel bilateral pleural effusions with early bibasilar consolidation. Liver: No focal parenchymal abnormality of the liver. Biliary: Gallbladder appears unremarkable as well as the intra and extra hepatic biliary system. Pancreas: No focal abnormality or ductal dilatation. Around the tail of pancreas there is mild inflam matory stranding and fluid extending to the left paracolic gutter region. No fluid collections around the pancreas. Spleen: Normal appearance. Adrenal glands: Unremarkable. Kidneys / retroperitoneum: No evidence of nephrolithiasis or hydronephrosis. Bilateral renal cysts, 1 .2 centers on the right and 3.9 cm on the left. No other discrete renal lesions. Bowel / peritoneum / mesenteries: Multiple diverticula seen along the descending and sigmoid colon wi thout pericolonic inflammation. The colon shows no focal normality. The appendix is not visualized. S mall bowel shows no focal abnormality or obstruction. The stomach is unremarkable. The duodenum shows no focal abnormality. No free air, free fluid, fluid collections or areas of inflammation. Small u bilical hernia containin g fat. Lymph node assessment: No pathologic adenopathy identified.Pelvic structures: The urinary bladder is decompressed with Curry catheter in place. The remaining pelvic structures visualized within selena l limits. Vessels: Mild atherosclerotic calcifications seen throughout a nonaneurysmal abdominal aorta and bran ches. Musculoskeletal / Body wall: No acute or aggressive osseous abnormality. Mild degenerative changes sp ine. IMPRESSION: 1. There is mild distal peripancreatic inflammation and fluid extending into the paracolic gutter reg ion on the left side. No fluid collections. No focal pancreatic abnormality. This could be due to ear ly pancreatitis. 2. Diverticulosis without radiographic indication diverticulitis. 3. Small bilateral small pleural effusion with bibasilar consolidation. 4. Bilateral renal cyst. Report Dictated By: Paulino Phipps at 01/02/2018 2:10 PM Report E-Signed By: Paulino Phipps at 01/02/2018 2:31 PM WSN:[id number]
[2018-01-02] MEDS ORDERED: IMMU GLOB(IGG) 10GR/100ML VIAL 40 GR in EMPTY EVACUATED CONT 0 ML IV ONE (15:00)
--- NOTE | 2018-01-02 17:05 | RADIOLOGY IMAGING REPORT ---
FACILITY: [facility] PATIENT NAME: Merlyn Israel : 1940 MR: [id number] V: [id number] EXAM DATE: ORDERING PHYSICIAN: MICHAEL HENRIQUEZ TECHNOLOGIST: Location: [facility] [place] Patient: Merlyn Israel : 1940 Visit/Account:[id number] Date of Sevice: 01/02/2018 Exam type: PICC LINE INSERTION, PICC LINE PLACEMENT History: IV access Comparison: None. Findings: Informed consent was obtained from the patient's son. The patient's left arm was prepped and draped in usual sterile fashion. Local anesthesia was accomplished with 1% lidocaine. Utilizing both sonog raphic and fluoroscopic guidance a 39 cm long trimmed 5 Nepalese double lumen power PICC which was inse rted via the patent left basilic vein with the distal tip resting in the superior vena cava. Both scooter mens of the power PICC were flushed with 5 mL of saline flush. Proximal portion PICC line was adhere d to the patient's arm with a sterile dressing. The sonographic images were saved to PACS. The proc edure was accomplished without apparent complication. The fluoroscopy dose area product was 471.63 m icro-Noble per meter squared. IMPRESSION: 1. Successful placement of a 39 cm long trimmed 5 Nepalese double lumen power PICC inserted via the pa tent left basilic vein with the distal tip resting in superior vena cava Report Dictated By: Sara Martin MD at 01/02/2018 4:58 PM Report E-Signed By: Sara Martin MD at 01/02/2018 5:02 PM WSN:[email or web address]
--- NOTE | 2018-01-02 17:06 | RADIOLOGY IMAGING REPORT ---
[place] [facility] [place] Merlyn Israel : 1940 MR: [id number] V: [id number] EXAM DATE: ORDERING PHYSICIAN: MICHAEL HENRIQUEZ TECHNOLOGIST: Location: [facility] [place] Patient: Merlyn Israel : 1940 Visit/Account:[id number] Date of Sevice: 01/02/2018 Exam type: PICC LINE INSERTION, PICC LINE PLACEMENT History: IV access Comparison: None. Findings: Informed consent was obtained from the patient's son. The patient's left arm was prepped and draped in usual sterile fashion. Local anesthesia was accomplished with 1% lidocaine. Utilizing both sonog raphic and fluoroscopic guidance a 39 cm long trimmed 5 Cymro double lumen power PICC which was inse rted via the patent left basilic vein with the distal tip resting in the superior vena cava. Both scooter mens of the power PICC were flushed with 5 mL of saline flush. Proximal portion PICC line was adhere d to the patient's arm with a sterile dressing. The sonographic images were saved to PACS. The proc edure was accomplished without apparent complication. The fluoroscopy dose area product was 471.63 m icro-Noble per meter squared. IMPRESSION: 1. Successful placement of a 39 cm long trimmed 5 Cymro double lumen power PICC inserted via the pa tent left basilic vein with the distal tip resting in superior vena cava Report Dictated By: Sara Martin MD at 01/02/2018 4:58 PM Report E-Signed By: Sara Martin MD at 01/02/2018 5:02 PM WSN:[email or web address]
[2018-01-02] MEDS: DEXMEDETOMIDINE IN 0.9 % NACL 100 ML IV PRN (18:26)
[2018-01-02] MEDS ORDERED: WATER STERILE IR ONE (18:28)
[2018-01-02] MEDS ORDERED: LORazepam 2 MG/ML VIAL ONE (19:27)
[2018-01-02] MEDS: SULFA IVPB SCH (20:35)
[2018-01-02] MEDS: TRIMETH IVPB SCH (20:35)
[2018-01-02] MEDS: D5W IVPB SCH (20:35)
[2018-01-02] MEDS: cefTRIAXone 2 GM VIAL IVP SCH (20:40)
--- NOTE | 2018-01-02 21:03 | RADIOLOGY IMAGING REPORT ---
FACILITY: [facility] - [place] PATIENT NAME: Merlyn Israel : 1940 MR: [id number] V: [id number] EXAM DATE: ORDERING PHYSICIAN: MICHAEL HENRIQUEZ TECHNOLOGIST: Location: [facility] [place] Patient: Merlyn Israel : 1940 Visit/Account:[id number] Date of Sevice: 01/02/2018 ADDENDUM #1 These findings were discussed with MICHAEL HENRIQUEZ at 01/02/2018 9:16 PM. Per discussion with Dr. Quiroga on, given the patient's known meningitis, the finding of debris layering within the ventricles is mos t suggestive of a ventriculitis. Report Dictated By: Hawk Cortez MD at 01/02/2018 9:15 PM Report E-Signed By: Hawk Cortez MD at 01/02/2018 9:17 PM ORIGINAL REPORT EXAMINATION: Head CT without intravenous contrast HISTORY: Medial deviation of the right eye. COMPARISON: 01/02/2018 at 2:55 AM TECHNIQUE: Contiguous axial images were obtained from the skull base to the vertex without intraven ous contrast. Sagittal and coronal reformatted images are also submitted. One of the following dose optimization techniques was utilized in the performance of this exam: Autom ated exposure control; adjustment of the mA and/or kV according to the patient's size; or use of an i terative reconstruction technique. Specific details can be referenced in the facility's radiology C T exam operational policy. FINDINGS: Brain and intracranial structures: Unchanged mild dilation of the lateral and third ventricles. Ther e is subtle increased attenuation in the occipital horns of the lateral ventricles suggestive of suba cute blood products or debris. Unchanged coarse calcifications in the left cerebellum. Noble-white mat ter differentiation is maintained. No midline shift, acute infarct, or mass. Vessels: Calcified plaque of the carotid siphons. Calvarium / scalp: Negative. Skull base / visualized face: Negative. Visualized sinuses / orbits: Mucosal thickening and fluid cause near complete opacification of the l eft maxillary sinus. Mild mucosal thickening in the sphenoid sinuses. Moderate mucosal thickening in the ethmoid air cells. Trace mucosal thickening in the right maxillary sinus. Opacification of the bi lateral middle ear cavities and mastoid air cells. Rightward deviation of the nasal septum. IMPRESSION: There is subtle increased attenuation within the occipital horns of the lateral ventricles which may represent debris or blood products. This appears new or increased since the prior examination. A pote ntial etiology for debris within the occipital horns of the lateral ventricles could be ventriculitis . MRI of the brain with and without contrast may be helpful for further evaluation of this. Since thi s appears increased since the prior examination and is lower attenuation than acute blood, hemorrhage is thought less likely. Stable mild enlargement of the lateral and third ventricles. Paranasal sinus mucosal disease. Correlate for signs of acute sinusitis. Bilateral effusions of the middle ear cavities and mastoid air cells. Report Dictated By: Hawk Cortez MD at 01/02/2018 8:34 PM Report E-Signed By: Hawk Cortez MD at 01/02/2018 8:59 PM WSN:[id number]
[2018-01-02 21:21] LABS: INR 1.48
--- NOTE | 2018-01-02 21:50 | Miscellaneous Provider Note ---
Miscellaneous Provider Note Note The patient is becoming more awake, but not following commands and agitated. She is on the BIPAP, which is keeping her O2 saturations wnl. Still tachypneic but improving. She was started on Precedex for the agitation, which has helped , but now BP is low normal. No further fevers since this morning, and was having temperatures to 97. The patient is septic with a GPC meningitis based on tests below. 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 She is receiving IVIG. 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 Will stop Acyclovir. Staff did note right eye medial deviation, which was difficult for me to confirm because she was resisting exam. She did get a repeat head CT as mentioned below. So far, tolerating BIPAP. The did not want her intubated based on her previous requests. Blood Cultures x2 with GPC. CSF culture reportedly with GPC (not showing up on [employer]) Item Value Date Time Lactate 2.6 mmol/L H 01/02/18 1459 Lactate 2.1 mmol/L 01/02/18 210 Total Bilirubin 0.2 mg/dl 01/02/18 210 Aspartate Amino Transf (AST/SGOT) 56 U/L H 01/02/18 210 Alanine Aminotransferase (ALT/SGPT) 39 U/L 01/02/18 210 Alkaline Phosphatase 68 U/L 01/02/182102 Lactate 5.3 mmol/L *H 01/02/18 0132 Creatinine 1.00 mg/dl 01/02/18 2103 Creatinine 0.90 mg/dl 01/02/18 1459 Creatinine 0.90 mg/dl 01/02/18 0132 Potassium Level 3.2 mmol/L L 01/02/18 1459 Potassium Level 3.8 mmol/L 01/02/18 2103 CSF Appearance Cloudy 01/02/18 0000 CSF Color Yellow 01/02/18 0000 CSF WBC 00893 /mm3 H 01/02/18 0000 CSF RBC 2277 /mm3 01/02/18 0000 CSF Neutrophils 94 % 01/02/18 0000 CSF Lymphocytes 5 % 01/02/18 0000 CSF Monocytes 1 % 01/02/18 0000 CSF Eosinophils % 0 % 01/02/18 0000 CSF Basophils 0 % 01/02/18 0000 CSF Glucose < 20 mg/dl *L 01/02/18 0000 CSF Total Protein 2103 mg/dl H 01/02/18 0000 Influenza Virus Type A (PCR) Negative 01/02/18 0128 Influenza Virus Type B (PCR) Negative 01/02/18 0128 Haemophilus influenzae B Antigen Negative 01/02/18 Neisseria meningitidis A/Y Antigen Negative 01/02/18 Neisseria meningitidis C/W135 Ag Negative 01/02/18 N. meningitidis B/E.coli K1 Ag Negative 01/02/18 Group B Streptococcus Antigen Negative 01/02/18 Streptococcus pneumoniae Antigen Negative 01/02/18 Chest CTA - 1. No evidence of pulmonary embolus. 2. Bilateral pneumonia with small pleural effusions. ADDENDUM #1 Also in the impression of the CT the chest: Incidental note of a retroesophageal right subclavian artery. Abd/Pelvis CT - 1. There is mild distal peripancreatic inflammation and fluid extending into the paracolic gutter region on the left side. No fluid collections. No focal pancreatic abnormality. This could be due to early pancreatitis. 2. Diverticulosis without radiographic indication diverticulitis. 3. Small bilateral small pleural effusion with bibasilar consolidation. 4. Bilateral renal cyst. Head CT (repeat) - There is subtle increased attenuation within the occipital horns of the lateral ventricles which may represent debris or blood products. This appears new or increased since the prior examination. A potential etiology for debris within the occipital horns of the lateral ventricles could be ventriculitis. MRI of the brain with and without contrast may be helpful for further evaluation of this. Since this appears increased since the prior examination and is lower attenuation than acute blood, hemorrhage is thought less likely. Stable mild enlargement of the lateral and third ventricles. Paranasal sinus mucosal disease. Correlate for signs of acute sinusitis. Bilateral effusions of the middle ear cavities and mastoid air cells. ADDENDUM #1 These findings were discussed with MICHAEL HENRIQUEZ at 01/02/2018 9:16 PM. Per discussion with Dr. Henriquez, given the patient's known meningitis, the finding of debris layering within the ventricles is most suggestive of a ventriculitis. Report Dictated By: Hawk Cortez MD at 01/02/2018 9:15 PM MICHAEL HENRIQUEZ MD Jan 02, 2018 21:50
[2018-01-02] MEDS: VANCOMYCIN(*) 1 GM VIAL 1 GM, VANCOMYCIN (*) 0.5 GM VIAL 0.5 GM in NS(*) 0.9% 250 ML BA... IVPB SCH (22:05)
[2018-01-03] VITALS (96 sets, daily range): BP systolic 68–136; BP diastolic 45–86
[2018-01-03] MEDS: DEXMEDETOMIDINE IN 0.9 % NACL 100 ML IV PRN ×2 (02:44→21:00)
[2018-01-03] MEDS: SULFA IVPB SCH ×3 (03:49→20:42)
[2018-01-03] MEDS: TRIMETH IVPB SCH ×3 (03:49→20:42)
[2018-01-03] MEDS: D5W IVPB SCH ×3 (03:49→20:42)
[2018-01-03 05:24] LABS: PLATELET COUNT, AUTOMATED 99 K/uL (150-450)
[2018-01-03] MEDS ORDERED: ENOXAPARIN 40 MG/0.4ML SYR SC SCH (09:00)
[2018-01-03] MEDS: PANTOPRAZOLE SOD 40 MG IV VIAL IVP SCH (09:25)
[2018-01-03] MEDS: cefTRIAXone 2 GM VIAL IVP SCH ×2 (09:35→21:01)
[2018-01-03] MEDS ORDERED: BISACODYL 10 MG SUPP PR PRN (10:00)
[2018-01-03] MEDS: VANCOMYCIN(*) 1 GM VIAL 1 GM, VANCOMYCIN (*) 0.5 GM VIAL 0.5 GM in NS(*) 0.9% 250 ML BA... IVPB SCH (10:00)
[2018-01-03] MEDS: DEXAMETHASONE SOD 20MG/5 ML VL IVP SCH ×2 (12:28→17:42)
--- NOTE | 2018-01-03 12:57 | Hospitalist Progress Note ---
Subjective Progress Notes Subjective This patient presented to the emergency room with fever and altered mental status. She has required respiratory support with BiPAP overnight. Patient Complains of: Cardiovascular: No: Chest Pain Respiratory: Shortness of Breath Physical Exam Vital Signs Date Time Temp Pulse Resp B/P (MAP) Pulse Ox O2 Delivery O2 Flow Rate FiO2 01/03/18 11:00 103 25 123/73 (90) 94 01/03/18 10:45 Bi-PAP 70.0 01/03/18 10:00 98.2 01/03/18 04:06 21.0 Intake and Output 01/04/18 07:00 Output Total 70 ml Balance -70 ml Output Urine Total 70 ml Neuro: Other (Confused and disoriented.) Eyes: PERRLA Cardiovascular: Regular Rate and Rhythm Respiratory: Other (Bilateral breath sounds present.) GI: Soft and Non-Tender Extremities: Edema Integumentary: No Cyanosis Result Diagram: 01/03/1844601/03/187 Item Value Date Time Vancomycin Level Trough 27.77 ug/ml 01/03/18 0918 Item Value Date Time Troponin I 2.850 ng/ml *H 01/03/18 0447 Item Value Date Time Blood Culture - Final Resulted 01/02/18 0205 Blood Peripheral Draw Blood Culture - Final Resulted 01/02/18 0132 Blood Peripheral Draw Gram Stain Resulted 01/02/18 0000 Cerebrospinal Fluid Pending Imaging Echocardiogram reviewed. CT chest/abdomen/pelvis reviewed. Assessment and Plan Problems: (1) Bacterial meningitis Assessment & Plan: She did present with fever and altered mental status. Her CSF is consistent with bacterial meningitis and is reported to be growing gram positive cocci. She is on treatment with ceftriaxone, Bactrim, and vancomycin. We have also added dexamethasone after pharmacy review. Her mentation has not improved significantly since admission. (2) Bacterial pneumonia Assessment & Plan: Her CT scan has shown bilateral infiltrates. She is on antibiotics as above. (3) Sepsis Status: Acute Assessment & Plan: She has had a fever, tachycardia, elevated WBC, and lactic acidosis. Her blood cultures are also positive for a gram positive organism. She has received IV fluid resuscitation, but has not yet required vasopressor support. (4) Acute respiratory failure Assessment & Plan: She has had increased work of breathing and is dependent on BiPAP. We are also using Precedex to increase her compliance. The family has requested a DNI status. (5) Elevated troponin Status: Acute Assessment & Plan: She developed an elevated troponin, which is likely secondary to global hypoperfusion. This was discussed with cardiology, and recommendations were received to consider stress testing once her acute issues have resolved. Her levels have been trending down. (6) Hypogammaglobulinemia Status: Chronic Assessment & Plan: She has been untreated over the last several years secondary to insurance reasons. She did receive a dose yesterday. Exam Sepsis Risk: No Definite Risk Problem Qualifiers (1) Sepsis: Sepsis type: sepsis due to unspecified organism Qualified Codes: A41.9 - Sepsis, unspecified organism JEREMY BERNARD DO Jan 03, 2018 12:57
--- NOTE | 2018-01-03 13:10 | Medical Nutrition Therapy ---
Nutrition Anthropometrics Weight (Pounds): 185 Weight (Calculated Kilograms): 84.056 Vitor Nutrition Score: Probably Inadequate Vitor Nutrition Risk Score: 13 Dietary Referral Nutrition Risk Factors: Nutrition Risk Comment: AMS Physical Findings Physical Appearance: Skin Appearance Skin Appearance: Edema Edema Location Modifier: Edema Location: Type of Edema: Degree of Edema: Gastrointestinal Symptoms GI Symtoms: Tube Present: Bowel Sounds: Recent Bowel Pattern: Stool Characteristics: Nutritional Diagnosis Nutritional Risk Acuity 2: Sepsis Past Medical History: Unable to obtain due to altered mental status Nutritional Acuity: 1-High Nutrition Problem/Etiology/Sym: Inadequate oral intake related to physiological causes as evidenced by NPO status. Adjusted Energy Requirement Re: 2100 (25kcal/kg (no height at this time) ) Protein Requirement: 84 (1g/kg) Fluid Requirement: 2100 (25 ml/kg) Nutrition Intervention: Cont diet as ordered, Encourage intake, Obtain Height and Weight Nutrition Monitoring & Eval RD Patient Assessment Time: [address] Assessment Type: RD Assessment Patient Nutrition Acuity: 1-High Follow Up Date: Jan 04, 2018 Nutritional Comment: 01/02) Pt was found down with vomitting fluids from nose and mouth. Unable to obtain past medical history. Dx sepsis. Labs: 01/02) K 2.8, chloride 91, Glu 182, Lactate 5.3,troponin 1.9, AST 39. Follw up 01/03 01/03) Pt was admitted to ICU yesterday with elevated troponin levels, hypogammaglobulinemia, and HTN. Pt was placed on BiPAP. Pt remains disoriented with no po intake since admission. Labs 01/03) K 3.4, BUN 25, Cre 1.10, Glu 199, troponin 2.8, Alb 2.2. If pt remains NPO > 3 days (01/05/2018), nutrition support is reccomended. Will monitor labs, weight, possible nutrition support. TRAY COLE Jan 03, 2018 11:35
[2018-01-03] MEDS: NS(*) 0.9% 1000 ML BAG 1,000 ML IV PRN ×2 (17:37→19:10)
--- NOTE | 2018-01-03 20:00 | RADIOLOGY IMAGING REPORT ---
FACILITY: [facility] PATIENT NAME: THERESA REDMAN : [id number] MR: [id number] V: [id number] EXAM DATE: ORDERING PHYSICIAN: MICHAEL HENRIQUEZ TECHNOLOGIST: Steve Brown EXAMINATION:TWO-DIMENSIONAL ECHOCARDIOGRAPH REASON:ELEVATED TROPONIN/POSSIBLE MYOCARDIAL INFARCTION 2D Measurements (normal values in centimeters) LV endLV endRV endVent.LV PostAorticLeftPercent DiastolicSystolicDiastolicSeptumWallRootAtriumShortening (3.5-5.7)(0.9-2.6)(0.6-1.1)(0.6-1.1)(2.0-3.7)(1.9-4.0)(25-35%) [id number]% STROKE VOLUME: 33ml ESTIMATED EJECTION FRACTION:37% PARASTERNAL LONG AXIS: Right ventricle appears to be mildly enlarged. It does appear to contract. Left ventricular systolic function is significantly decreased. There is some hypokinesis but also appears to be some akinesis along the inferior wall. Aortic valve & mitral valve both appear to open normally. Color examination of the mitral valve reveals mitral insufficiency. Color examination of the aortic valve in this view was unremarkable. PARASTERNAL SHORT AXIS: Again left ventricular systolic function is decreased with what appears to be akinesis along the posterior wall. Aortic valve is mild aortic sclerosis but is not stenotic. Color examination of the pulmonic valve reveals a trace of pulmonic insufficiency present. APICAL FOUR AND TWO CHAMBER: Left ventricular ejection fraction appears to be decreased. Trace of mitral & tricuspid insufficiency is noted. Aortic valve area was measured within normal ranges at 2.4cm2. Mitral valve area was measured within normal ranges at 2.6cm2. Tricuspid regurgitation Vmax was measured at 2.32m/sec. Estimated right atrial pressure is 8mm Hg. Left atrial & right atrial volumes are measured within normal ranges at 24 & 16ml/m2. The TAPSE does show some decreased right ventricular function at 1.3%. There is akinesis along the inferior wall. Generalized hypokinesis otherwise. SUBCOSTAL VIEW: No pericardial effusion was noted. No atrioseptal or ventriculoseptal defects were appreciated. Doppler examination of the mitral valve in diastole does reveal the A wave > E wave. OVERALL IMPRESSION: 1. Decreased left ventricular ejection fraction of approximately 37%. Generalized hypokinesis but there is also akinesis along the inferior wall. Right ventricle is mildly enlarged. The TAPSE does suggest that there is right ventricular decreased function as well. 2. A Grade 1/4 decrease in diastolic function. 3. A trileaflet aortic valve with no stenosis & no insufficiency present. 4. A trace of mitral & tricuspid insufficiency with estimated right ventricular systolic pressures within normal ranges at 30mm Hg which does include an estimated right atrial pressure of 8mm Hg. 5. Borderline right ventricular enlargement. Dictated by: Travis Garcia M.D. on 01/03/2018 at 9:54 Transcribed by: KENZIE on 01/03/2018 at 11:29 Approved by: Travis Garcia M.D. on 01/03/2018 at 19:57 [facility]
[2018-01-03] MEDS ORDERED: VANCOMYCIN(*) 1 GM VIAL 1 GM, VANCOMYCIN (*) 0.5 GM VIAL 0.5 GM in NS(*) 0.9% 250 ML BA... IVPB SCH (22:00)
[2018-01-04] VITALS (98 sets, daily range): BP systolic 105–177; BP diastolic 64–105
[2018-01-04] MEDS: DEXAMETHASONE SOD 20MG/5 ML VL IVP SCH ×5 (00:23→23:44)
[2018-01-04] MEDS: SULFA IVPB SCH (03:50)
[2018-01-04] MEDS: TRIMETH IVPB SCH (03:50)
[2018-01-04] MEDS: D5W IVPB SCH (03:50)
[2018-01-04 05:39] LABS: PLATELET COUNT, AUTOMATED 95 K/uL (150-450)
[2018-01-04] MEDS ORDERED: [UNRECOGNIZED DRUG - OTHER] IV ONE (09:00)
[2018-01-04] MEDS: cefTRIAXone 2 GM VIAL IVP SCH ×2 (09:24→20:57)
[2018-01-04] MEDS: PANTOPRAZOLE SOD 40 MG IV VIAL IVP SCH (09:24)
--- NOTE | 2018-01-04 12:18 | Hospitalist Progress Note ---
Subjective Progress Notes Subjective She will open eyes to tactile stimuli, but will resist eye opening to check pupillary response. No fevers. Physical Exam Vital Signs Date Time Temp Pulse Resp B/P (MAP) Pulse Ox O2 Delivery O2 Flow Rate FiO2 01/04/18 11:11 95 Bi-PAP 70.0 01/04/18 11:08 15.0 01/04/18 10:30 96 01/04/18 10:30 26 126/80 (95) 01/04/18 10:15 98.8 Intake and Output 01/05/18 07:00 Intake Total 25 ml Output Total 50 ml Balance -25 ml Intake IV Total 25 ml Output Urine Total 50 ml General Appearance: Other (she will open eyes to tactile stimuli/she does not follow commands/she does withdraw to tickling feet) Neuro: Other (she does move left upper extremity fairly purposefully - try to remove BiPAP ) Eyes: PERRLA ENT: Other (BiPAP mask on) Cardiovascular: Regular Rate and Rhythm Respiratory: Other (rales both lungs mid-upper ibarra/scattered rhonchi) GI: Other (soft/essentially no BS) Extremities: Warm, Perfused Integumentary: Other (no rashes noted) Result Diagram: 01/04/18 0505 01/04/18 0505 Assessment and Plan Problems: (1) Bacterial meningitis Assessment & Plan: She did present with fever and altered mental status. Her CSF is consistent with bacterial meningitis and Gram stain was reported gram positive cocci (but no growth on culture). She had received IV antibiotics before lumbar puncture was completed. She is currently on treatment with IV ceftriaxone, Bactrim, vancomycin, and dexamethasone. Her mental status has improved slightly over the past 24hours. Will now stop the Precedex and reassess. Her blood cultures are growing Streptococcus pneumoniae. We will be bale to stop amalia Bactrim now (empiric treatment for possibility of Listeria). (2) Bacterial pneumonia Assessment & Plan: Her CT scan has shown bilateral infiltrates. Question if this might be the origin of the infection or an aspiration after her mental status change. She is on antibiotics as above. (3) Sepsis Status: Acute Assessment & Plan: She has had a fever, tachycardia, elevated WBC, and lactic acidosis. Her blood cultures are now growing Streptococcus pneumoniae. We will be able to stop the Bactrim now as it was started empirically for coverage of a possible Listeria infection. She has received IV fluid resuscitation. She has not yet required vasopressor support. Watch closely. (4) Acute respiratory failure Assessment & Plan: She has had increased work of breathing and is currently dependent on BiPAP. We initially had to start Precedex to increase her compliance, but will now try to stop it and assess her mental status. The family has requested a DNI status. (5) Elevated troponin Status: Acute Assessment & Plan: She developed an elevated troponin, which is likely secondary to global hypoperfusion. This was discussed with cardiology and recommendations were to consider stress testing once her acute issues have resolved. Her levels have been trending down. (6) Hypogammaglobulinemia Status: Chronic Assessment & Plan: She has been untreated over the last several years secondary to insurance reasons. She did receive a dose 01/02/18. Exam Sepsis Risk: Severe Sepsis Risk Problem Qualifiers (1) Sepsis: Sepsis type: sepsis due to unspecified organism Qualified Codes: A41.9 - Sepsis, unspecified organism PEDRO ALFONSO MD Jan 04, 2018 12:18
[2018-01-04] MEDS: INSULIN HUM LISPRO 100 UN/ML 3 ML VIAL SUBQ PRN ×3 (12:35→23:45)
--- NOTE | 2018-01-04 13:58 | Medical Nutrition Therapy ---
Nutrition Anthropometrics Weight (Pounds): 201 Weight (Calculated Kilograms): 91.399 Vitor Nutrition Score: Adequate Vitor Nutrition Risk Score: 12 Dietary Referral Nutrition Risk Factors: Nutrition Risk Comment: AMS Physical Findings Physical Appearance: Skin Appearance Skin Appearance: Edema Edema Location Modifier: Edema Location: Type of Edema: Degree of Edema: Gastrointestinal Symptoms GI Symtoms: Tube Present: Bowel Sounds: Recent Bowel Pattern: Stool Characteristics: Nutritional Diagnosis Nutritional Risk Acuity 1: TPN/PPN Nutritional Risk Acuity 2: Sepsis Past Medical History: Unable to obtain due to altered mental status Nutritional Acuity: 1-High Nutrition Problem/Etiology/Sym: Inadequate oral intake related to physiological causes as evidenced by NPO status. Adjusted Energy Requirement Re: 2100 (25kcal/kg (no height at this time) ) Protein Requirement: 84 (1g/kg) Fluid Requirement: 2100 (25 ml/kg) Nutrition Intervention: Cont diet as ordered, Encourage intake, Obtain Height and Weight Nutritional Support Current Enteral / Parental: TPN Rate: 63 Current Duration: 24 Current Calories: 1542 Current Protein: 63 Current Lipids Calories: 500 Total Current Calories: 2042 Nutrition Monitoring & Eval RD Patient Assessment Time: [address] Assessment Type: RD Assessment Patient Nutrition Acuity: 1-High Follow Up Date: Jan 05, 2018 Nutritional Comment: 01/02) Pt was found down with vomitting fluids from nose and mouth. Unable to obtain past medical history. Dx sepsis. Labs: 01/02) K 2.8, chloride 91, Glu 182, Lactate 5.3,troponin 1.9, AST 39. Follw up 01/03 01/03) Pt was admitted to ICU yesterday with elevated troponin levels, hypogammaglobulinemia, and HTN. Pt was placed on BiPAP. Pt remains disoriented with no po intake since admission. Labs 01/03) K 3.4, BUN 25, Cre 1.10, Glu 199, troponin 2.8, Alb 2.2. If pt remains NPO > 3 days (01/05/2018), nutrition support is reccomended. Will monitor labs, weight, possible nutrition support. 01/04) Clinimix and Intralipid TPN was initiated this morning. Clinimix goal rate of 63 mL/hr/24hr will provide 63 grams of protein (meeting 75% of est. pro needs) and 1542 kcals/day. Intralipid at 250mL/day will provide 500 kcals. Total kcals/day from TPN is 2042kcal (meeting 97% of EER). Labs: 01/04) troponin 2.19, Alb 2.4, Glu 160, BUN 35, Cre 1.6.Will monitor labs, weight and TPN tolerance. TRAY COLE Jan 04, 2018 13:45
[2018-01-04] MEDS: NS(*) 0.9% 1000 ML BAG 1,000 ML IV PRN (14:37)
[2018-01-04] MEDS ORDERED: FUROSEMIDE 40 MG/4 ML VIAL IVP ONE (15:28)
[2018-01-04] MEDS ORDERED: NITROGLYCERIN OINT 1 GM PKT TP ONE (15:30)
[2018-01-04] MEDS ORDERED: FUROSEMIDE 40 MG/4 ML VIAL ONE (15:36)
--- NOTE | 2018-01-04 15:43 | RADIOLOGY IMAGING REPORT ---
FACILITY: [facility] PATIENT NAME: Merlyn Israel : 1940 MR: [id number] V: [id number] EXAM DATE: ORDERING PHYSICIAN: PEDRO ALFONSO TECHNOLOGIST: Location: [facility] Patient: Merlyn Israel : 1940 Visit/Account:[id number] Date of Sevice: 01/04/2018 Exam type: CHEST SINGLE AP History: Tachypnea, rhonchi, increased O2 requirements Comparison: January 02, 2018. Findings: There has been marked interval worsening of the extensive bilateral pulmonary infiltrates. The dense st area of consolidation is in the left perihilar region. The cardiac silhouette is unchanged. The trachea is in midline. There is some placement of a left PICC line with the distal tip projects over the superior vena cava. No pneumothorax is demonstrated. IMPRESSION: 1. Interval worsening of the patchy airspace consolidation throughout the lungs most prominent in th e left perihilar region. This is consistent with the clinical history of pneumonia Report Dictated By: Sara Martin MD at 01/04/2018 3:35 PM Report E-Signed By: Sara Martin MD at 01/04/2018 3:38 PM WSN:[email or web address]
--- NOTE | 2018-01-04 15:58 | EKG ---
FACILITY: [facility] PATIENT NAME: THERESA REDMAN : [id number] MR: [id number] V: [id number] EXAM DATE: ORDERING PHYSICIAN: PEDRO ALFONSO TECHNOLOGIST: Test Reason : Blood Pressure : / mmHG Vent. Rate : 143 BPM Atrial Rate : 144 BPM P-R Int : 132 ms QRS Dur : 082 ms QT Int : 278 ms P-R-T Axes : 050 058 083 degrees QTc Int : 429 ms Sinus tachycardia Poor R wave progression through precordial leads Slight ST depression inferolateral leads Abnormal ECG Confirmed by PEDRO ALFONSO ([id number]) on 01/04/2018 5:18:16 PM Referred By: Confirmed By:PEDRO ALFONSO
[2018-01-04] MEDS: FAT EMULSION 20% 250 ML BAG 250 ML IVPB SCH (16:00)
--- NOTE | 2018-01-04 16:08 | Antimicrobial Stewardship ---
Antimicrobial Stewardship MD Service: Hospitalist Indications: Other (Sepsis/ Pneumonia/) Antimicrobial Allergies PCN Duration of Therapy: CVID-- Longer duration of treatment to be expected based on source of infection Start Date: Jan 02, 2018 Weight (Calculated Kilograms): 84.056 Culture Results: Yes (01/02: Blood Cx pending, UA (-), lumbar puncture attempted in the ED) Recommendations re: Culture 01/02/18: CSF (+) GPC, Blood Cx x2 (GPC- S. 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 Pt had altered mental status, found down, left facial droop, axillary fever of 105F. In the ED, pt received 4-6 L of fluids and Cefepime and was transferred to the floor. O: Temp- Tmax 104.8 (arrival in the ED), Afebrile since 01/02/18 at noon RR was in the 40-50s, now in the 20s (on BiPAP) BP was 171/111 on admission, 100s/60-70s now (precedex---stopped on 01/04/18) Labs: WBC- 39.6,17.2, 10.8, 22.06 Hgb 13.2, now 9.4 Plt 183, now 99-- watch closely K - 2.8 _->3.4 Scr- 0.9--> 1.1 -->1.7 -->2 Troponin 0.918 -->5.82-->2.850 TSH - 1.97 Lactate 5.3-->5.6-->2.1 Cultures: Blood Cx x 2 -- GPC in all 4 bottles, reported in pairs (consider s. pneumoniae) - CONFIRMED S. pneumoniae- susceptibility and JOLIE pending (susceptibility testing to be completed at [facility]) CSF - GPC seen per report (documentation unavailable in [employer]) CSF-- Cloudy, WBC 18,909, RBC 2277, Neutrophils 94, Glucose <20, Total Protein 2103 Diagnostics: CT of the head- showed ventriculitis, debris layering within the ventricles CTA- no PE, question pneumonia Echo- EF 37%, akinesis along inferior wall Chest xray- no acute process A/P: 1. Sepsis secondary to pneumonia/meningitis- AMS, febrile, WBC/lactate/troponin elevated, RR 40-50s now 20s on BIPAP. CT of the head showed no hemorrhage, mass or edema, but did show an acute sinusitis. Chest xray showed no acute findings. Blood cultures drawn in the ED, LP attempted- unsuccessful. CTA of the chest showed bilateral pneumonia with small pleural effusions, negative for PE. CT of the abdomen showed possible early pancreatitis, diverticulosis, small effusions with bibasilar consolidation, and bilateral renal cysts. On 01/02- repeat head CT showed possible ventriculitis consistent with meningitis. Blood cultures now positive with GPC in 4/4 bottles- + ID of S. pneumoniae, CSF gram stain showed multiple GPC (LP completed after initiation of antibiotics). 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 CVID - Pt received IVIG 40g monthly back in 2014, but stopped secondary to out of pocket costs. IVIG 40 g given 01/02/18 x1 , check IgG levels 1 week after dose, goal is 1000, may need to repeat. Discussed with service now developer at [facility] [place]- Dr.Hoyte Jasmin Figueroa, PharmD, OP JASMIN FIGUEROA Jan 02, 2018 12:56
[2018-01-04] MEDS ORDERED: NS(*) 0.9% 250 ML BAG 250 ML ONE (21:51)
[2018-01-04] MEDS ORDERED: VANCOMYCIN 0.5 GM VIAL ONE (21:51)
[2018-01-04] MEDS ORDERED: VANCOMYCIN 1 GM VIAL ONE (21:51)
[2018-01-04] MEDS ORDERED: WATER STERILE(*) 10 ML VIAL 20 ML ONE (21:52)
[2018-01-04] MEDS ORDERED: VANCOMYCIN(*) 1 GM VIAL 1 GM, VANCOMYCIN (*) 0.5 GM VIAL 0.25 GM in NS(*) 0.9% 250 ML B... IVPB SCH (22:00)
[2018-01-05] VITALS (81 sets, daily range): BP systolic 140–199; BP diastolic 83–127
[2018-01-05] MEDS ORDERED: FUROSEMIDE 40 MG/4 ML VIAL IVP ONE ×2 (00:40→07:50)
[2018-01-05] MEDS ORDERED: NITROGLYCERIN OINT 1 GM PKT ONE (04:00)
[2018-01-05] MEDS ORDERED: NITROGLYCERIN OINT 1 GM PKT TP ONE (04:00)
[2018-01-05] MEDS: DEXAMETHASONE SOD 20MG/5 ML VL IVP SCH ×3 (05:41→17:59)
[2018-01-05] MEDS: INSULIN HUM LISPRO 100 UN/ML 3 ML VIAL SUBQ PRN ×3 (05:42→17:58)
[2018-01-05 06:13] LABS: PLATELET COUNT, AUTOMATED 174 K/uL (150-450)
--- NOTE | 2018-01-05 06:55 | RADIOLOGY IMAGING REPORT ---
FACILITY: [facility] PATIENT NAME: Merlyn Israel : 1940 MR: [id number] V: [id number] EXAM DATE: ORDERING PHYSICIAN: PEDRO ALFONSO TECHNOLOGIST: Location: [facility] Patient: Merlyn Israel : 1940 Visit/Account:[id number] Date of Sevice: 01/05/2018 PORTABLE CHEST: Indication: CHF and pneumonia. Technique: A single frontal film was obtained. Comparison: 01/04/2018 Lines and tubes: The PICC line remains in satisfactory position. Skeletal and soft tissue structures: Stable. Heart and mediastinum: Stable. Lung ibarra: The diffuse edema pattern appears worse. There are persistent confluent opacities. Pleural spaces: No evidence of pneumothorax or significant effusion. Impression: Interval worsening parenchymal pattern. Report Dictated By: Claudio Lainez MD at 01/05/2018 6:50 AM Report E-Signed By: Claudio Lainez MD at 01/05/2018 6:52 AM [id number]
[2018-01-05] MEDS ORDERED: HYDROGEN PEROXID 3% 473 ML BTL TP ONE (08:55)
[2018-01-05] MEDS ORDERED: [UNRECOGNIZED DRUG - OTHER] IV SCH (09:00)
[2018-01-05] MEDS: PANTOPRAZOLE SOD 40 MG IV VIAL IVP SCH (09:07)
[2018-01-05] MEDS: cefTRIAXone 2 GM VIAL IVP SCH ×2 (09:17→20:26)
--- NOTE | 2018-01-05 10:01 | Hospitalist Progress Note ---
Subjective Progress Notes Subjective This patient was admitted for meningitis. She developed flash pulmonary edema overnight. Patient Complains of: Cardiovascular: No: Chest Pain Respiratory: Congestion, Shortness of Breath Physical Exam Vital Signs Date Time Temp Pulse Resp B/P (MAP) Pulse Ox O2 Delivery O2 Flow Rate FiO2 01/05/18 08:00 119 01/05/18 07:48 32 01/05/18 07:48 90 Bi-PAP 100.0 01/05/18 06:30 99.4 171/101 (124) 01/04/18 11:08 15.0 Intake and Output 01/06/18 07:00 Output Total 150 ml Balance -150 ml Output Urine Total 150 ml Neuro: Other (Minimally responsive to commands.) Eyes: PERRLA Cardiovascular: Regular Rate and Rhythm, Other (JVD present.) Respiratory: Other (Bilateral breath sounds present, but extensive rales.) GI: Soft and Non-Tender Extremities: Edema Integumentary: No Cyanosis Result Diagram: 01/05/18 0600 01/05/18 0600 Item Value Date Time Vancomycin Level Trough 22.06 ug/ml 01/04/18 2101 Item Value Date Time Blood Culture - Final Resulted 01/02/18 0205 Blood Peripheral Draw Blood Culture - Final Resulted 01/02/18 0132 Blood Peripheral Draw Imaging Chest x-ray reviewed. Assessment and Plan Problems: (1) Flash pulmonary edema Assessment & Plan: She did develop flash pulmonary edema overnight. She responded to treatment with nitroglycerin and Lasix. However, her chest x-ray continues to show findings consistent with pulmonary edema. We will continue to diurese her through the day. (2) Bacterial meningitis Assessment & Plan: She did present with fever and altered mental status. Her CSF is consistent with bacterial meningitis and Gram stain was reported to show gram positive cocci (but no growth on culture). She had received IV antibiotics before lumbar puncture was completed. She is currently on treatment with IV ceftriaxone and vancomycin. She was also started on dexamethasone. (3) Bacterial pneumonia Assessment & Plan: Her CT scan has shown bilateral infiltrates. Her blood cultures were positive for Strep pneumonia. She remains on antibiotics as above. (4) Sepsis Status: Acute Assessment & Plan: She has had a fever, tachycardia, elevated WBC, and lactic acidosis. Her blood cultures are positive as above. She has not required vasopressor support. (5) Acute respiratory failure Assessment & Plan: She has had increased work of breathing and is currently dependent on BiPAP. We initially had to start Precedex to increase her compliance, but this has now been discontinued. (6) Elevated troponin Status: Acute Assessment & Plan: She developed an elevated troponin, which is likely secondary to global hypoperfusion. This was discussed with cardiology and recommendations were to consider stress testing once her acute issues have resolved. Her levels have been trending down. (7) Hypogammaglobulinemia Status: Chronic Assessment & Plan: She has been untreated over the last several years secondary to insurance reasons. She did receive a dose 01/02/18. Exam Sepsis Risk: Severe Sepsis Risk Problem Qualifiers (1) Sepsis: Sepsis type: sepsis due to unspecified organism Qualified Codes: A41.9 - Sepsis, unspecified organism JEREMY BERNARD DO Jan 05, 2018 10:00
--- NOTE | 2018-01-05 10:14 | Medical Nutrition Therapy ---
Nutrition Anthropometrics Height (Inches): 61.00 Height (Calculated Centimeters: 154.752005 Weight (Pounds): 191 Weight (Calculated Kilograms): 86.863 Vitor Nutrition Score: Adequate Vitor Nutrition Risk Score: 12 Dietary Referral Nutrition Risk Factors: Nutrition Risk Comment: AMS Physical Findings Physical Appearance: Obese BMI 30-39 Skin Appearance Skin Appearance: Edema Edema Location Modifier: Edema Location: Type of Edema: Degree of Edema: Gastrointestinal Symptoms GI Symtoms: Tube Present: Bowel Sounds: Recent Bowel Pattern: Stool Characteristics: Nutritional Diagnosis Nutritional Risk Acuity 1: TPN/PPN Nutritional Risk Acuity 2: Sepsis Past Medical History: Unable to obtain due to altered mental status Nutritional Acuity: 1-High Nutrition Problem/Etiology/Sym: Inadequate oral intake related to physiological causes as evidenced by NPO status. Adjusted Energy Requirement Re: 2100 (25kcal/kg (no height at this time) ) Protein Requirement: 84 (1g/kg) Fluid Requirement: 2100 (25 ml/kg) Nutrition Intervention: Cont diet as ordered, Encourage intake, Obtain Height and Weight Nutritional Support Current Enteral / Parental: TPN Rate: 63 Current Duration: 24 Current Calories: 1542 Current Protein: 63 Current Lipids Calories: 500 Total Current Calories: 2042 Nutrition Monitoring & Eval RD Patient Assessment Time: [address] Assessment Type: RD Re-Assessment Patient Nutrition Acuity: 1-High Follow Up Date: Jan 06, 2018 Nutritional Comment: 01/02) Pt was found down with vomitting fluids from nose and mouth. Unable to obtain past medical history. Dx sepsis. Labs: 01/02) K 2.8, chloride 91, Glu 182, Lactate 5.3,troponin 1.9, AST 39. Follw up 01/03 01/03) Pt was admitted to ICU yesterday with elevated troponin levels, hypogammaglobulinemia, and HTN. Pt was placed on BiPAP. Pt remains disoriented with no po intake since admission. Labs 01/03) K 3.4, BUN 25, Cre 1.10, Glu 199, troponin 2.8, Alb 2.2. If pt remains NPO > 3 days (01/05/2018), nutrition support is reccomended. Will monitor labs, weight, possible nutrition support. 01/04) Clinimix and Intralipid TPN was initiated this morning. Clinimix goal rate of 63 mL/hr/24hr will provide 63 grams of protein (meeting 75% of est. pro needs) and 1542 kcals/day. Intralipid at 250mL/day will provide 500 kcals. Total kcals/day from TPN is 2042kcal (meeting 97% of EER) Labs: 01/04) troponin 2.19, Alb 2.4, Glu 160, BUN 35, Cre 1.6.Will monitor labs, weight and TPN tolerance. 01/05) Pt. remains dependent of BiPap. Tested postive for streptococcus pneumoniae.Labs: Alb 3.3, ALT 66, AST 57, Glu 222, Cre 2.00, BUN 47. Weight is down 4.3kg from yesterday likely fluid related. TPN continues at goal rate of 63 ml/hr. Lipids were not administered yesterday per MD request.Will continue to monitor labs, weight and TPN. TRAY COLE Jan 05, 2018 09:21
[2018-01-05] MEDS ORDERED: NITROGLYCERIN 0.2 MG/HR TD SCH (11:00)
[2018-01-05] MEDS: FAT EMULSION 20% 250 ML BAG 250 ML IVPB SCH (16:58)
[2018-01-05] MEDS: PATCH REMOVAL 1 EA TP SCH (20:23)
[2018-01-05] MEDS: ACETAMINOPHEN(*)1000 MG/100 ML 100 ML IVPB PRN (20:33)
[2018-01-05] MEDS ORDERED: LABETALOL HCL 20 MG/4 ML SYR IVP PRN (22:05)
[2018-01-05] MEDS: VANCOMYCIN(*) 1 GM VIAL 1 GM, VANCOMYCIN (*) 0.5 GM VIAL 0.25 GM in NS(*) 0.9% 250 ML B... IVPB SCH (22:10)
[2018-01-06] VITALS (96 sets, daily range): BP systolic 159–187; BP diastolic 94–116
[2018-01-06] MEDS: DEXAMETHASONE SOD 20MG/5 ML VL IVP SCH ×4 (00:24→18:12)
[2018-01-06] MEDS: NS(*) 0.9% 1000 ML BAG 1,000 ML IV PRN (02:19)
[2018-01-06] MEDS: ACETAMINOPHEN(*)1000 MG/100 ML 100 ML IVPB PRN ×2 (05:10→16:19)
[2018-01-06 05:44] LABS: PLATELET COUNT, AUTOMATED 111 K/uL (150-450)
[2018-01-06] MEDS: INSULIN HUM LISPRO 100 UN/ML 3 ML VIAL SUBQ PRN ×3 (06:08→18:10)
--- NOTE | 2018-01-06 06:37 | RADIOLOGY IMAGING REPORT ---
FAC[place] [facility] [place]IENT NAME: Merlyn Israel : 1940 MR: [id number] V: [id number] EXAM DATE: ORDERING PHYSICIAN: JEREMY BERNARD TECHNOLOGIST: Location: [facility] Patient: Merlyn Israel : 1940 Visit/Account:[id number] Date of Sevice: 01/06/2018 EXAMINATION: Portable chest radiograph single view at 0606 hours HISTORY: Pneumonia. COMPARISON: 01/04/2018 and 01/05/2018. FINDINGS: A single portable AP view of the chest is obtained. Lines/tubes: Left PICC line tip overlying the cavoatrial junction is unchanged. Lungs/pleura: Persistent bilateral consolidation with some peripheral and apical sparing, mildly imp roved. No pleural effusion. Heart: Negative. Mediastinum: Atherosclerotic calcifications of the aorta. Bony structures/body wall: Negative. IMPRESSION: Bilateral consolidation with some peripheral sparing is slightly improved. Findings are suspicious fo r pneumonia. Report Dictated By: Yesenia Yoo MD at 01/06/2018 6:32 AM Report E-Signed By: Yesenia Yoo MD at 01/06/2018 6:34 AM [id number]
[2018-01-06] MEDS ORDERED: FUROSEMIDE 40 MG/4 ML VIAL IVP ONE (08:05)
[2018-01-06] MEDS: NITROGLYCERIN 0.4 MG/HR TD SCH (08:47)
[2018-01-06] MEDS: PANTOPRAZOLE SOD 40 MG IV VIAL IVP SCH (08:59)
[2018-01-06] MEDS: cefTRIAXone 2 GM VIAL IVP SCH ×2 (09:08→20:39)
--- NOTE | 2018-01-06 09:29 | Hospitalist Progress Note ---
Subjective Progress Notes Subjective The patient is BiPAP dependent. She does not tolerate even a short time off of the BiPAP. She does move some but does not open her eyes or follow commands. Physical Exam Vital Signs Date Time Temp Pulse Resp B/P (MAP) Pulse Ox O2 Delivery O2 Flow Rate FiO2 01/06/18 08:07 92 Bi-PAP 90.0 01/06/18 08:07 115 36 01/06/18 06:15 169/100 (123) 01/06/18 04:15 99.6 01/04/18 11:08 15.0 General Appearance: Alert, Other (Tachypneic with BiPAP mask in place. Appears ill.) Neuro: Other (Unable to respond. Does move occasionally.) Cardiovascular: Other (Tachycardic, regular.) Respiratory: Other (Tachypneic. Diminished BS throughout without wheezing or rhonchi.) GI: Soft and Non-Tender, Other (No audible bowel sounds.) Extremities: Warm, Perfused Psych: Other (Unresponsive.) Result Diagram: 01/06/18 0518 01/06/18 0518 Item Value Date Time Calcium Level 8.9 mg/dl 01/06/18 0518 Total Bilirubin 0.2 mg/dl 01/06/18 0518 Aspartate Amino Transf (AST/SGOT) 66 U/L H 01/06/18 0518 Alanine Aminotransferase (ALT/SGPT) 66 U/L H 01/06/18 0518 Alkaline Phosphatase 88 U/L 01/06/18 0518 Total Protein 6.2 gm/dl L 01/06/18 0518 Albumin 2.9 g/dl L 01/06/18 0518 Vancomycin Level Trough 24.37 ug/ml 01/05/181956 Blood cultures growing Strep pneumoniae which has been sent for susceptibility testing. Imaging FACILITY: [facility] PATIENT NAME: Merlyn Israel : 1940 MR: [id number] V: [id number] EXAM DATE: ORDERING PHYSICIAN: JEREMY BERNARD TECHNOLOGIST: Location: [facility] [place] Patient: Merlyn Israel : 1940 Visit/Account:[id number] Date of Sevice: 01/06/2018 EXAMINATION: Portable chest radiograph single view at 0606 hours HISTORY: Pneumonia. COMPARISON: 01/04/2018 and 01/05/2018. FINDINGS: A single portable AP view of the chest is obtained. Lines/tubes: Left PICC line tip overlying the cavoatrial junction is unchanged. Lungs/pleura: Persistent bilateral consolidation with some peripheral and apical sparing, mildly improved. No pleural effusion. Heart: Negative. Mediastinum: Atherosclerotic calcifications of the aorta. Bony structures/body wall: Negative. IMPRESSION: Bilateral consolidation with some peripheral sparing is slightly improved. Findings are suspicious for pneumonia. Report Dictated By: Yesenia Yoo MD at 01/06/2018 6:32 AM Report E-Signed By: Yesenia Yoo MD at 01/06/2018 6:34 AM WSN:[id number] Assessment and Plan Problems: (1) Bacterial meningitis Assessment & Plan: She did present with fever and altered mental status. Her CSF is consistent with bacterial meningitis and gram stain was reported to show gram positive cocci (but no growth on culture). She had received IV antibiotics before lumbar puncture was completed. She is currently on treatment with IV ceftriaxone and vancomycin. She was also started on dexamethasone. She remains unresponsive. Prognosis is very poor. Her family elected to continue aggressive care but make her DNI/DNR. (2) Flash pulmonary edema Assessment & Plan: She did develop flash pulmonary edema on 01/05. She responded to treatment with nitroglycerin and Lasix. Her chest x-ray continues to show findings consistent with pulmonary edema. We will continue to diurese her as needed. (3) Bacterial pneumonia Assessment & Plan: Her CT scan has shown bilateral infiltrates. Her blood cultures were positive for Strep pneumonia. She remains on antibiotics as above. (4) Sepsis Status: Acute Assessment & Plan: She has had a fever, tachycardia, elevated WBC, and lactic acidosis. Her blood cultures are positive as above. She has not required vasopressor support. (5) Acute respiratory failure Assessment & Plan: She has had increased work of breathing and is currently dependent on BiPAP. We initially had to start Precedex to increase her compliance, but this has now been discontinued. (6) Elevated troponin Status: Acute Assessment & Plan: She developed an elevated troponin, which is likely secondary to global hypoperfusion. This was discussed with cardiology and recommendations were to consider stress testing once her acute issues have resolved. Echo shows a decrease in EF at 37%. Her levels have been trending down. (7) Hypogammaglobulinemia Status: Chronic Assessment & Plan: She has been untreated over the last several years secondary to insurance reasons. She did receive a dose 01/02/18. Time Spent on Plan of Care: < 30 min Exam Sepsis Risk: Severe Sepsis Risk Problem Qualifiers (1) Sepsis: Sepsis type: sepsis due to unspecified organism Qualified Codes: A41.9 - Sepsis, unspecified organism LUISA ALFONSO MD Jan 06, 2018 09:29
[2018-01-06] MEDS: MORPHINE 2 MG/ML SYR IVP PRN ×2 (09:34→20:22)
--- NOTE | 2018-01-06 11:40 | Medical Nutrition Therapy ---
Nutrition Anthropometrics Height (Inches): 61.00 Height (Calculated Centimeters: 154.177641 Weight (Pounds): 196 Weight (Calculated Kilograms): 88.904 Vitor Nutrition Score: Adequate Vitor Nutrition Risk Score: 12 Dietary Referral Nutrition Risk Factors: Nutrition Risk Comment: AMS Physical Findings Physical Appearance: Obese BMI 30-39 Skin Appearance Skin Appearance: Edema Edema Location Modifier: Edema Location: Type of Edema: Degree of Edema: Gastrointestinal Symptoms GI Symtoms: Tube Present: Bowel Sounds: Recent Bowel Pattern: Stool Characteristics: Nutritional Diagnosis Nutritional Risk Acuity 1: TPN/PPN Nutritional Risk Acuity 2: Sepsis Past Medical History: Unable to obtain due to altered mental status Nutritional Acuity: 1-High Nutrition Diagnosis: Inadequate Food Intake Nutrition Etiology: Physiological Causes Nutrition Problem/Etiology/Sym: Inadequate oral intake related to physiological causes as evidenced by NPO status. Adjusted Energy Requirement Re: 2100 (25kcal/kg (no height at this time) ) Protein Requirement: 84 (1g/kg) Fluid Requirement: 2100 (25 ml/kg) Diet Type: TPN/PPN Nutrition Intervention: Change diet, Obtain Height and Weight Drug: Diuretics Nutritional Support Current Enteral / Parental: TPN Rate: 63 Current Duration: 24 Current Calories: 1542 Current Protein: 63 Current Lipids Calories: 500 Total Current Calories: 2042 Nutrition Monitoring & Eval RD Patient Assessment Time: [address] Assessment Type: RD Re-Assessment Patient Nutrition Acuity: 1-High Follow Up Date: Jan 06, 2018 Nutritional Comment: 01/02) Pt was found down with vomitting fluids from nose and mouth. Unable to obtain past medical history. Dx sepsis. Labs: 01/02) K 2.8, chloride 91, Glu 182, Lactate 5.3,troponin 1.9, AST 39. Follw up 01/03 01/03) Pt was admitted to ICU yesterday with elevated troponin levels, hypogammaglobulinemia, and HTN. Pt was placed on BiPAP. Pt remains disoriented with no po intake since admission. Labs 01/03) K 3.4, BUN 25, Cre 1.10, Glu 199, troponin 2.8, Alb 2.2. If pt remains NPO > 3 days (01/05/2018), nutrition support is reccomended. Will monitor labs, weight, possible nutrition support. 01/04) Clinimix and Intralipid TPN was initiated this morning. Clinimix goal rate of 63 mL/hr/24hr will provide 63 grams of protein (meeting 75% of est. pro needs) and 1542 kcals/day. Intralipid at 250mL/day will provide 500 kcals. Total kcals/day from TPN is 2042kcal (meeting 97% of EER) Labs: 01/04) troponin 2.19, Alb 2.4, Glu 160, BUN 35, Cre 1.6.Will monitor labs, weight and TPN tolerance. 01/05) Pt. remains dependent of BiPap. Tested postive for streptococcus pneumoniae.Labs: Alb 3.3, ALT 66, AST 57, Glu 222, Cre 2.00, BUN 47. Weight is down 4.3kg from yesterday likely fluid related. TPN continues at goal rate of 63 ml/hr. Lipids were not administered yesterday per MD request.Will continue to monitor labs, weight and TPN. 01/06 Alb 2.9, Glu 195, High AST/ALT, High BUN/Creat. Continues with Clinimix 4.25-25 @ 63mL/hr and Intralipid 20% @ 250mL/day. Weight 88.904kg (195.6#) and flucuating d/t edmea and diuresis. Follow clinical progress, labs, nutrition support/diet changes, etc. KATERINE ROMERO Jan 06, 2018 11:40
[2018-01-06] MEDS: [UNRECOGNIZED DRUG - OTHER] IV SCH (13:35)
[2018-01-06] MEDS: FAT EMULSION 20% 250 ML BAG 250 ML IVPB SCH (15:55)
[2018-01-06] MEDS: LABETALOL HCL 100 MG/20ML VIAL IVP PRN (16:15)
[2018-01-06] MEDS: PATCH REMOVAL 1 EA TP SCH (20:22)
[2018-01-06] MEDS ORDERED: PATCH REMOVAL 1 EA TOP SCH (21:00)
[2018-01-06] MEDS: VANCOMYCIN(*) 1 GM VIAL 1 GM, VANCOMYCIN (*) 0.5 GM VIAL 0.25 GM in NS(*) 0.9% 250 ML B... IVPB SCH (22:45)
[2018-01-07] VITALS (95 sets, daily range): BP systolic 154–187; BP diastolic 89–114
[2018-01-07] MEDS: DEXAMETHASONE SOD 20MG/5 ML VL IVP SCH ×4 (00:01→18:00)
[2018-01-07] MEDS: MORPHINE 2 MG/ML SYR IVP PRN (00:25)
[2018-01-07] MEDS: ACETAMINOPHEN(*)1000 MG/100 ML 100 ML IVPB PRN (01:00)
[2018-01-07] MEDS: LABETALOL HCL 100 MG/20ML VIAL IVP PRN ×2 (02:35→15:26)
[2018-01-07 05:31] LABS: PLATELET COUNT, AUTOMATED 107 K/uL (150-450)
[2018-01-07] MEDS: [UNRECOGNIZED DRUG - OTHER] IV SCH (05:39)
[2018-01-07] MEDS: INSULIN HUM LISPRO 100 UN/ML 3 ML VIAL SUBQ PRN ×4 (06:05→18:01)
--- NOTE | 2018-01-07 06:42 | RADIOLOGY IMAGING REPORT ---
FACILITY: [facility] PATIENT NAME: Merlyn Israel : 1940 MR: [id number] V: [id number] EXAM DATE: ORDERING PHYSICIAN: LUISA ALFONSO TECHNOLOGIST: Location: [facility] Patient: Merlyn Israel : 1940 Visit/Account:[id number] Date of Sevice: 01/07/2018 EXAMINATION: Portable chest radiograph single view at 0610 hours HISTORY: Pneumonia. COMPARISON: 01/05/2018 and 01/06/2018. FINDINGS: A single portable AP view of the chest is obtained. Lines/tubes: Left PICC line with the tip overlying the cavoatrial junction, unchanged. Lungs/pleura: Improving lung aeration with decreasing consolidation. There is some apical sparing wh ich is unchanged. No pleural effusion. Heart: Negative. Mediastinum: Atherosclerotic calcifications of the aorta. Bony structures/body wall: Negative. IMPRESSION: Improving lung aeration likely reflects clearing pneumonia. Report Dictated By: Yesenia Yoo MD at 01/07/2018 6:37 AM Report E-Signed By: Yesenia Yoo MD at 01/07/2018 6:38 AM WSN:[id number]
--- NOTE | 2018-01-07 08:11 | Hospitalist Progress Note ---
Subjective Progress Notes Subjective She is unresponsive to verbal, tactile, painful stimuli. She has some low grade temps. Physical Exam Vital Signs Date Time Temp Pulse Resp B/P (MAP) Pulse Ox O2 Delivery O2 Flow Rate FiO2 01/07/18 07:23 70.0 01/07/18 06:30 100.6 112 23 170/108 (128) 94 Bi-PAP 01/04/18 11:08 15.0 General Appearance: Other (unresponsive) Neuro: Other (essntially flaccid) Eyes: Other (Pupils do react/no resistance to opening/corneal reflex is present ) ENT: Other (minimal gag reflex with suctioning per nursing) Cardiovascular: Regular Rate and Rhythm (slightly tachycardic) Respiratory: Other (bilateral rales mid-lower and dependent lung ibarra) Chest: Other (no response to sternal rub) GI: Other (essentially no bowel sounds/soft) Extremities: Warm, Perfused, Edema (dependent) Result Diagram: 01/07/18 0503 01/07/18 0503 Item Value Date Time Albumin 3.0 g/dl L 01/07/18 0503 Total Protein 6.1 gm/dl L 01/07/18 0503 Alkaline Phosphatase 80 U/L 01/07/18 0503 Alanine Aminotransferase (ALT/SGPT) 87 U/L H 01/07/18 0503 Aspartate Amino Transf (AST/SGOT) 63 U/L H 01/07/18 0503 Total Bilirubin 0.2 mg/dl 01/07/18 0503 Magnesium Level 2.2 mg/dl 01/07/18 0503 Phosphorus Level 3.7 mg/dl 01/07/18 0503 Calcium Level 9.0 mg/dl 01/07/18 0503 Whole Blood Glucose 313 mg/DL H 01/07/18 0604 Whole Blood Glucose 323 mg/DL H 01/06/18 2359 Whole Blood Glucose 305 mg/DL H 01/06/18 1807 Whole Blood Glucose 262 mg/DL H 01/06/18 1229 Assessment and Plan Problems: (1) Bacterial meningitis Assessment & Plan: She did present with fever and altered mental status. Her CSF is consistent with bacterial meningitis and gram stain was reported to show gram positive cocci (but no growth on culture). She had received IV antibiotics before lumbar puncture was completed. She is currently on treatment with IV ceftriaxone, vancomycin, and dexamethasone. She is unresponsive. Prognosis is very poor. It is very concerning she may have complications arising from the meningitis (such as possible obstruction of CSF flow/hydrocephalus). Will need to repeat CT (2nd CT showed probable debris in ventricles). Her family has elected to continue medical management care, but have made her DNI/DNR. They have been wishing to avoid overly aggressive interventions. Will need to discuss further with family. (2) Flash pulmonary edema Assessment & Plan: She did develop flash pulmonary edema on 01/05. Most likely related to IV fluids and recent myocardial ischemic event. She responded to treatment with nitroglycerin and Lasix. Her chest x-ray has improved significantly. We will continue to diurese her as needed. (3) Bacterial pneumonia Assessment & Plan: Her CT scan has shown bilateral infiltrates. Her blood cultures were positive for Strep pneumonia. She remains on antibiotics as above. (4) Sepsis Status: Acute Assessment & Plan: She has had a fever, tachycardia, elevated WBC, and lactic acidosis. Her blood cultures are positive as above. She has not required vasopressor support thus far. (5) Acute respiratory failure Assessment & Plan: She has had increased work of breathing and is currently dependent on BiPAP. We initially had to start Precedex to increase her compliance, but this has now been discontinued. (6) Elevated troponin Status: Acute Assessment & Plan: She developed an elevated troponin, which is likely secondary to global hypoperfusion (vs. CAD related). This was discussed with cardiology and recommendations were to consider stress testing once her acute issues have resolved. Echo shows a decrease in EF at 37%. Her troponin levels did show a downward trend. (7) Hypogammaglobulinemia Status: Chronic Assessment & Plan: She has been untreated over the last several years secondary to insurance reasons. She did receive a dose 01/02/18. Exam Sepsis Risk: Severe Sepsis Risk Problem Qualifiers (1) Sepsis: Sepsis type: sepsis due to unspecified organism Qualified Codes: A41.9 - Sepsis, unspecified organism PEDRO ALFONSO MD Jan 07, 2018 08:11
[2018-01-07] MEDS: [UNRECOGNIZED DRUG - OTHER] IV SCH ×2 (08:24→22:46)
[2018-01-07] MEDS: PANTOPRAZOLE SOD 40 MG IV VIAL IVP SCH (08:50)
[2018-01-07] MEDS: NITROGLYCERIN 0.4 MG/HR TD SCH (08:52)
[2018-01-07] MEDS: cefTRIAXone 2 GM VIAL IVP SCH ×2 (09:03→21:07)
--- NOTE | 2018-01-07 10:08 | RADIOLOGY IMAGING REPORT ---
FACILITY: [facility] - [place] PATIENT NAME: Merlyn Israel : 1940 MR: [id number] V: [id number] EXAM DATE: ORDERING PHYSICIAN: PEDRO ALFONSO TECHNOLOGIST: Location: [facility] Patient: Merlyn Israel : 1940 Visit/Account:[id number] Date of Sevice: 01/07/2018 CT Head without contrast Indication: Possible CSF obstruction. Comparison: January 02, 2018 Technique: Axial CT images were obtained through the brain from the skull base to the vertex without administration of IV contrast. Reformatted coronal and sagittal images were also obtained. One of the following dose optimization techniques was utilized in the performance of this exam: Autom ated exposure control; adjustment of the mA and/or kV according to the patient's size; or use of an i terative reconstruction technique. Specific details can be referenced in the facility's radiology C T exam operational policy. Findings: No evidence of mass, mass effect, or midline shift. No acute intracranial hemorrhage or acute territorial infarction. The subtle areas of increased attenuation seen previously within the occipital horns of the lateral v entricles are no longer seen. Ventricles are unchanged in size and shape on today's exam. Prominent t hird ventricle is stable. There is a new, ill-defined area of decreased attenuation within the left occipital white matter post eriorly. This is more pronounced and asymmetric when compared to the prior study. This may reflect an evolving infarct. Clinical correlation necessary. MRI of the brain could be performed for further as sessment. There is an air-fluid level again seen within the left maxillary sinus. This is less pronounced than on the prior study and may represent improving acute sinusitis. There are partially opacified ethmoid air cells which also appear mildly improved. Left cerebellar parenchymal calcifications are unchanged. IMPRESSION: 1. Ill-defined region of decreased attenuation within the left occipital white matter which is more p ronounced and asymmetric than on the prior exam. This may reflect an evolving infarct. No mass effect or midline shift. Brain MRI could be performed for further assessment. 2. No interval change in the extent of dilatation of the lateral and third ventricles. No definite la yering debris or blood products within the lateral ventricles. 3. Improving sinus mucosal disease when compared to the prior exam. Report Dictated By: Honorio Clancy at 01/07/2018 9:54 AM Report E-Signed By: Honorio Clancy at 01/07/2018 10:03 AM WSN:[id number]
[2018-01-07] MEDS: FAT EMULSION 20% 250 ML BAG 250 ML IVPB SCH (16:38)
[2018-01-07] MEDS: NS(*) 0.9% 1000 ML BAG 1,000 ML IV PRN (17:27)
[2018-01-07] MEDS: PATCH REMOVAL 1 EA TP SCH (21:00)
[2018-01-07] MEDS: VANCOMYCIN(*) 1 GM VIAL 1 GM, VANCOMYCIN (*) 0.5 GM VIAL 0.25 GM in NS(*) 0.9% 250 ML B... IVPB SCH (21:53)
[2018-01-08] VITALS (59 sets, daily range): BP systolic 89–202; BP diastolic 44–110
[2018-01-08] MEDS: DEXAMETHASONE SOD 20MG/5 ML VL IVP SCH ×2 (00:26→05:28)
[2018-01-08] MEDS: INSULIN HUM LISPRO 100 UN/ML 3 ML VIAL SUBQ PRN ×2 (00:29→06:40)
[2018-01-08] MEDS: LABETALOL HCL 100 MG/20ML VIAL IVP PRN ×2 (04:19→08:38)
[2018-01-08] MEDS: MORPHINE 2 MG/ML SYR IVP PRN ×4 (04:19→13:25)
[2018-01-08 05:30] LABS: PLATELET COUNT, AUTOMATED 97 K/uL (150-450)
--- NOTE | 2018-01-08 06:50 | RADIOLOGY IMAGING REPORT ---
FACILITY: [facility] PATIENT NAME: Merlyn Israel : 1940 MR: [id number] V: [id number] EXAM DATE: ORDERING PHYSICIAN: PEDRO ALFONSO TECHNOLOGIST: [place] [facility] [place] Merlyn Israel : 1940 Visit/Account:[id number] Date of Sevice: 01/08/2018 EXAMINATION: Portable chest radiograph single view at 0609 hours HISTORY: Pneumonia. COMPARISON: 01/06/2018 and 01/07/2018. FINDINGS: A single portable AP view of the chest is obtained. Lines/tubes: Left PICC line tip overlies the cavoatrial junction. Lungs/pleura: Mild improvement in lung aeration aeration with decreased patchy consolidation. There is some apical sparing. No pleural effusion. Heart: Negative. Mediastinum: Atherosclerotic calcifications of the aorta. Bony structures/body wall: Negative. IMPRESSION: Mild improvement in lung aeration probably reflects clearing pneumonia. Report Dictated By: Yesenia Yoo MD at 01/08/2018 6:44 AM Report E-Signed By: Yesenia Yoo MD at 01/08/2018 6:45 AM WSN:[id number]
[2018-01-08] MEDS ORDERED: NS 0.45%(*) 1000 ML BAG 1,000 ML IV PRN (07:50)
[2018-01-08] MEDS: PANTOPRAZOLE SOD 40 MG IV VIAL IVP SCH (08:42)
[2018-01-08] MEDS: NITROGLYCERIN 0.4 MG/HR TD SCH (08:43)
[2018-01-08] MEDS: cefTRIAXone 2 GM VIAL IVP SCH (09:03)
[2018-01-08] MEDS: ACETAMINOPHEN(*)1000 MG/100 ML 100 ML IVPB PRN (10:15)
--- NOTE | 2018-01-08 10:35 | Hospitalist Progress Note ---
Subjective Progress Notes Subjective She is not responding to voice or painful stimuli overnight. Possibly, some movement in her feet. Physical Exam Vital Signs Date Time Temp Pulse Resp B/P (MAP) Pulse Ox O2 Delivery O2 Flow Rate FiO2 01/08/18 10:00 110 01/08/18 09:31 40.0 01/08/18 09:31 94 Bi-PAP 01/08/18 08:45 25 185/100 (128) 01/08/18 08:00 100.6 01/04/18 11:08 15.0 Intake and Output 01/09/18 07:00 Output Total 250 ml Balance -250 ml Output Urine Total 250 ml General Appearance: Other (Mildly tachypneic. ) Neuro: Other (corneal reflex on the left. Pulls foot away without toe movement with stimulation of the feet. No reaction to painful stimuli in chest or any extremity.) Eyes: PERRLA Cardiovascular: Other (Tachy, regular) Result Diagram: 01/08/18 0507 01/08/18 0507 Assessment and Plan Problems: (1) Bacterial meningitis Assessment & Plan: She did present with fever and altered mental status. Her CSF is consistent with bacterial meningitis and gram stain was reported to show gram positive cocci (but no growth on culture). She had received IV antibiotics before lumbar puncture was completed. She is currently on treatment with IV ceftriaxone, vancomycin, and dexamethasone. She is unresponsive. Prognosis is very poor. It is very concerning she may have complications arising from the meningitis (such as possible obstruction of CSF flow/hydrocephalus). Repeat CT on 01/07, showed a possible left occipital evolving infarct, but otherwise unchanged. Her family has elected to continue medical management care, but have made her DNI/DNR. They have been wishing to avoid overly aggressive interventions. Will need to discuss further with family. Will stop dexamethasone today. Getting TPN/lipids. On Protonix. SCD for DVT prophylaxis due to low platelet count. (2) Flash pulmonary edema Assessment & Plan: She did develop flash pulmonary edema on 01/05. Most likely related to IV fluids and recent myocardial ischemic event. She responded to treatment with nitroglycerin and Lasix. Her chest x-ray has improved significantly. We will continue to diurese her as needed. (3) Bacterial pneumonia Assessment & Plan: Her CT scan has shown bilateral infiltrates. Her blood cultures were positive for Strep pneumonia. She remains on antibiotics as above. (4) Sepsis Status: Acute Assessment & Plan: She has had a fever, tachycardia, elevated WBC, and lactic acidosis. Her blood cultures are positive as above. She has not required vasopressor support thus far. (5) Acute respiratory failure Assessment & Plan: She has had increased work of breathing and is currently dependent on BiPAP. We initially had to start Precedex to increase her compliance, but this has now been discontinued. (6) Hypogammaglobulinemia Status: Chronic Assessment & Plan: She has been untreated over the last several years secondary to insurance reasons. She did receive a dose 01/02/18. Recheck IgG tomorrow. She might need to be dosed again, if being aggressive. (7) Hyperglycemia Status: Acute Assessment & Plan: Secondary to steroids and TPN. Stopping steroids. Will follow and continue SSI. (8) Hypernatremia Status: Acute Assessment & Plan: Not having excessive urination. Will change fluids to 1/2 NS. Creatinine slowly improving. (9) Elevated troponin Status: Acute Assessment & Plan: She developed an elevated troponin, which is likely secondary to global hypoperfusion (vs. CAD related). This was discussed with cardiology and recommendations were to consider stress testing once her acute issues have resolved. Echo shows a decrease in EF at 37%. Her troponin levels did show a downward trend. Exam Sepsis Risk: Severe Sepsis Risk Problem Qualifiers (1) Sepsis: Sepsis type: sepsis due to unspecified organism Qualified Codes: A41.9 - Sepsis, unspecified organism MICHAEL HENRIQUEZ MD Jan 08, 2018 10:35
[2018-01-08] MEDS ORDERED: LORazepam 2 MG/ML VIAL IVP PRN (11:15)
--- NOTE | 2018-01-08 13:32 | Medical Nutrition Therapy ---
Nutrition Anthropometrics Height (Inches): 61.00 Height (Calculated Centimeters: 154.173769 Weight (Pounds): 197 Weight (Calculated Kilograms): 89.358 Vitor Nutrition Score: Adequate Vitor Nutrition Risk Score: 12 Dietary Referral Nutrition Risk Factors: Nutrition Risk Comment: AMS Physical Findings Physical Appearance: Obese BMI 30-39 Skin Appearance Skin Appearance: Edema Edema Location Modifier: Edema Location: Type of Edema: Degree of Edema: Gastrointestinal Symptoms GI Symtoms: Tube Present: Bowel Sounds: Recent Bowel Pattern: Stool Characteristics: Nutritional Diagnosis Nutritional Risk Acuity 1: TPN/PPN Nutritional Risk Acuity 2: Sepsis Past Medical History: Unable to obtain due to altered mental status Nutritional Acuity: 1-High Nutrition Diagnosis: Inadequate Food Intake Nutrition Etiology: Physiological Causes Nutrition Problem/Etiology/Sym: Inadequate oral intake related to physiological causes as evidenced by NPO status. Adjusted Energy Requirement Re: 2100 (25kcal/kg (no height at this time) ) Protein Requirement: 84 (1g/kg) Fluid Requirement: 2100 (25 ml/kg) Diet Type: TPN/PPN Nutrition Intervention: Change diet, Obtain Height and Weight Drug: Diuretics Nutritional Support Current Enteral / Parental: TPN Rate: 63 Current Duration: 24 Current Calories: 1542 Current Protein: 63 Current Lipids Calories: 500 Total Current Calories: 2042 Nutrition Monitoring & Eval RD Patient Assessment Time: [address] Assessment Type: RD Re-Assessment Patient Nutrition Acuity: 1-High Follow Up Date: Jan 09, 2018 Nutritional Comment: 01/02) Pt was found down with vomitting fluids from nose and mouth. Unable to obtain past medical history. Dx sepsis. Labs: 01/02) K 2.8, chloride 91, Glu 182, Lactate 5.3,troponin 1.9, AST 39. Follw up 01/03 01/03) Pt was admitted to ICU yesterday with elevated troponin levels, hypogammaglobulinemia, and HTN. Pt was placed on BiPAP. Pt remains disoriented with no po intake since admission. Labs 01/03) K 3.4, BUN 25, Cre 1.10, Glu 199, troponin 2.8, Alb 2.2. If pt remains NPO > 3 days (01/05/2018), nutrition support is reccomended. Will monitor labs, weight, possible nutrition support. 01/04) Clinimix and Intralipid TPN was initiated this morning. Clinimix goal rate of 63 mL/hr/24hr will provide 63 grams of protein (meeting 75% of est. pro needs) and 1542 kcals/day. Intralipid at 250mL/day will provide 500 kcals. Total kcals/day from TPN is 2042kcal (meeting 97% of EER) Labs: 01/04) troponin 2.19, Alb 2.4, Glu 160, BUN 35, Cre 1.6.Will monitor labs, weight and TPN tolerance. 01/05) Pt. remains dependent of BiPap. Tested postive for streptococcus pneumoniae.Labs: Alb 3.3, ALT 66, AST 57, Glu 222, Cre 2.00, BUN 47. Weight is down 4.3kg from yesterday likely fluid related. TPN continues at goal rate of 63 ml/hr. Lipids were not administered yesterday per MD request.Will continue to monitor labs, weight and TPN. 01/06 Alb 2.9, Glu 195, High AST/ALT, High BUN/Creat. Continues with Clinimix 4.25-25 @ 63mL/hr and Intralipid 20% @ 250mL/day. Weight 88.904kg (195.6#) and flucuating d/t edmea and diuresis. Follow clinical progress, labs, nutrition support/diet changes, etc. 01/08)Pt. remains dependent on Bipap. Labs: Na 151, BUN 72, Cre 1.60, Glu 322, AST 415, ALT 303, Alb 2.8. Continues with Clinimix 4.25-25 @ 63mL/hr and Intralipid 20% @ 250mL/day. Weight 89.3 flucuating d/t edmea and diuresis. Follow clinical progress, labs, nutrition support/diet changes, weight TRAY COLE Jan 08, 2018 08:58
--- NOTE | 2018-01-08 14:53 | Death Summary ---
Pronounced Date: Jan 08, 2018 Pronounced Time: 14:40 Preliminary Cause of : Bacterial Meningitis Assessment: Hypogammaglobulinemia History of Present Illness Please see admission history and physical for details. Hospital Course She was admitted on 01/02 with acute onset of fever and AMS. She was septic secondary to bacterial meningitis from streptococcus pneumonia. She was started on Rocephin and Vancomycin, then narrowed to Rocephin. She was given IVIG on 01/02 because of amalia hypogammaglobulinemia. Despite aggressive treatment , she continued to have fever and her mental status worsened. At best, she was agitated, but not communicative or following commands. This morning, she had only a corneal reflex on the left and would withdraw her feet to plantar stimulation. She had no response to pain. CT's of the head were relatively stable, but there was concern for an evolving occipital infarct on 01/07. Per the family request, she was never placed on the ventilator and was managed with the BIPAP. Today, her son asked to withdraw support. The BIPAP was removed at about 12:30. She was without spontaneous respirations or heart sounds and was in asystole by telemetry at 14:40. MICHAEL HENRIQUEZ MD Jan 08, 2018 14:53
== END 2018-01-08 14:40 | disposition expired | DRG 871 ==
LOC: ER 01:22 → MED 05:16 → ICU 13:24
PROVIDERS: ADMIT Internal Medicine; ATTEND Internal Medicine
PROC: 5A09557 Assistance with Respiratory Ventilation, Greater than 96 Consecutive Hours, Continuous Positive Airway Pressure (ICD-10-PCS; principal; 2018-01-02)
PROC: 02HV33Z Insertion of Infusion Device into Superior Vena Cava, Percutaneous Approach (ICD-10-PCS; 2018-01-02)
PROC: B548ZZA Ultrasonography of Superior Vena Cava, Guidance (ICD-10-PCS; 2018-01-02)
DX: A40.3 Sepsis due to Streptococcus pneumoniae (principal); J96.00 Acute respiratory failure, unspecified whether with hypoxia or hypercapnia; J81.0 Acute pulmonary edema; J13 Pneumonia due to Streptococcus pneumoniae; I63.9 Cerebral infarction, unspecified; G00.9 Bacterial meningitis, unspecified; D80.1 Nonfamilial hypogammaglobulinemia; I24.9 Acute ischemic heart disease, unspecified; Z66 Do not resuscitate; I10 Essential (primary) hypertension; Z88.0 Allergy status to penicillin; Z88.8 Allergy status to other drugs, medicaments and biological substances
CPT/HCPCS: 36415; 36416; 36569; 36600; 70450; 71045; 71275; 74178; 76937; 80202; 80305; 80320; 81001; 82040; 82140; 82247; 82310; 82374; 82375; 82435; 82565; 82803; 82945; 82947; 82948; 83605; 83735; 84075; 84100; 84132; 84155; 84157; 84295; 84443; 84450; 84460; 84484; 84520; 85025; 85610; 85730; 87040; 87070; 87077; 87186; 87205; 87502; 87529; 87899; 89050; 93005; 94640; 94660; 96361; 96365; 96375; 99285; 99291; 99292; A4216; C1751; C1758; C8929; C9113; J0131; J0133; J0692; J0696; J1100; J1200; J1459; J1644; J1940; J2001; J2060; J2270; J2930; J3370; J3480; J3490; J7030; J7050; J7060; Q9957; Q9967